=== PATIENT | female | born 1940 | race Caucasian/White ===

== ENCOUNTER → 2018-08-04 11:44 | Outpatient (CLI) | payer MEDICARE, OTHER, SELFPAY ==
--- NOTE | 2018-08-04 | DI.RAD.S_ITS ---
PROCEDURE: XR KNEE RT 1TO2V INDICATIONS: PAIN IN RIGHT KNEE TECHNIQUE: 2 views of the knee were acquired. COMPARISON: [facility], , KNEE 1 VIEW BILATERAL, 03/16/2009, 16:03. FINDINGS: Bones: No fractures or dislocations. No suspicious bony lesions. Diffuse osteopenia. Mild narrowing of the lateral joint space. Soft tissues: Trace joint effusion. No suspicious soft tissue calcifications. IMPRESSION: Mild right knee joint degeneration. This appears progressed since 03/16/09. Dictated by: Saul Tolliver M.D. on 08/04/2018 at 15:43 Approved by: Saul Tolliver M.D. on 08/04/2018 at 15:45
== END ==
PROVIDERS: PCP Physician Assistant; Visit Provider Physician Assistant
DX: M25.561 Pain in right knee (principal); M17.11 Unilateral primary osteoarthritis, right knee
CPT/HCPCS: 73560

== ENCOUNTER → 2019-05-10 11:52 | Outpatient (CLI) | payer MEDICARE, OTHER, SELFPAY ==
[2019-05-10 12:21] LABS: Add Manual Diff / Slide Review NO; Basophils Absolute Auto 200 /uL (0-100); Eosinophils Absolute Auto 200 /uL (0-450); Eosinophils Percent Auto 2.2 % (2-4); Hematocrit 39.6 % (36-46); Hemoglobin 13.5 g/dL (12.0-16.0); Lymphocytes Absolute Auto 1700 /uL (1100-4500); Lymphocytes Percent Auto 22.8 % (25-40); Mean Corpuscular HGB Conc 34.2 % (30-36); Mean Corpuscular Hemoglobin 33.1 PG (26-34); Mean Corpuscular Volume 96.6 fL (80-100); Monocytes Absolute Auto 400 /uL (0-900); Monocytes Percent Auto 5.6 % (3-14); Neutrophils Absolute Auto 4900 /uL (1500-7000); Neutrophils Percent Auto 66.4 % (50-75); Platelet Count 233 X10^3/uL (150-400); Red Blood Cell Count 4.09 X10^6/uL (4.0-5.2); Red Cell Distribution Width 13.2 % (11.6-14.8); White Blood Cell Count 7.4 X10^3/uL (4.5-11.0)
[2019-05-10 12:46] LABS: Alanine Aminotransferase 15 IU/L (9-52); Albumin 4.3 g/dL (3.5-5.0); Albumin Globulin Ratio 1.3 (1.0-2.8); Alkaline Phosphatase 65 U/L (38-126); Aspartate Aminotransferase 26 IU/L (14-36); BUN Creatinine Ratio 16.7 (6-22); Blood Urea Nitrogen 15 mg/dL (7-17); Calcium 9.5 mg/dL (8.4-10.2); Carbon Dioxide 24 mmol/L (22-32); Chloride 104 mmol/L (98-107); Cholesterol 208 mg/dL (140-199); Estimated Glomerular Filt Rate > 60.0 mL/min (>60); Globulin 3.4 g/dL (1.7-4.1); Glucose 104 mg/dL (80-110); HDL Cholesterol 89 mg/dL (40-60); HEMOLYSIS < 15 (0-50); LDL Cholesterol Calculated 94 mg/dL (<100); Potassium 4.3 mmol/L (3.4-5.1); Sodium 140 mmol/L (137-145); Total Protein 7.7 g/dL (6.3-8.2); Triglycerides 125 mg/dL (35-150)
== END ==
PROVIDERS: PCP Physician Assistant; Visit Provider Physician Assistant
DX: M81.0 Age-related osteoporosis without current pathological fracture (principal); E78.5 Hyperlipidemia, unspecified
CPT/HCPCS: 36415; 80053; 80061; 85025

== ENCOUNTER → 2019-06-03 09:09 | Outpatient (CLI) | payer MEDICARE, OTHER, SELFPAY | PROVIDERS: PCP Physician Assistant; Visit Provider Physician Assistant | DX: M81.0 Age-related osteoporosis without current pathological fracture (principal); Z78.0 Asymptomatic menopausal state; F17.200 Nicotine dependence, unspecified, uncomplicated | CPT/HCPCS: 77080 ==

== ENCOUNTER → 2019-08-23 11:25 | Outpatient (CLI) | payer MEDICARE, OTHER, SELFPAY ==
[2019-08-23 12:17] LABS: Add Manual Diff / Slide Review NO; Basophils Absolute Auto 100 /uL (0-100); Eosinophils Absolute Auto 200 /uL (0-450); Eosinophils Percent Auto 2.2 % (2-4); Hematocrit 40.7 % (36-46); Hemoglobin 13.5 g/dL (12.0-16.0); Lymphocytes Absolute Auto 1800 /uL (1100-4500); Lymphocytes Percent Auto 18.9 % (25-40); Mean Corpuscular HGB Conc 33.1 % (30-36); Mean Corpuscular Hemoglobin 32.7 PG (26-34); Mean Corpuscular Volume 98.7 fL (80-100); Monocytes Absolute Auto 400 /uL (0-900); Monocytes Percent Auto 4.5 % (3-14); Neutrophils Absolute Auto 6900 /uL (1500-7000); Neutrophils Percent Auto 73.4 % (50-75); Platelet Count 218 X10^3/uL (150-400); Red Blood Cell Count 4.12 X10^6/uL (4.0-5.2); Red Cell Distribution Width 12.6 % (11.6-14.8); White Blood Cell Count 9.4 X10^3/uL (4.5-11.0)
[2019-08-23 12:37] LABS: Alanine Aminotransferase 14 IU/L (<35); Albumin 4.2 g/dL (3.5-5.0); Albumin Globulin Ratio 1.4 (1.0-2.8); Alkaline Phosphatase 60 U/L (38-126); Aspartate Aminotransferase 26 IU/L (14-36); BUN Creatinine Ratio 14.4 (6-22); Bilirubin Total 0.8 mg/dL (0.2-1.3); Blood Urea Nitrogen 13 mg/dL (7-17); Calcium 9.1 mg/dL (8.4-10.2); Carbon Dioxide 25 mmol/L (22-32); Chloride 106 mmol/L (98-107); Cholesterol 214 mg/dL (140-199); Estimated Glomerular Filt Rate > 60.0 mL/min (>60); Glucose 93 mg/dL (80-110); HDL Cholesterol 78 mg/dL (40-60); HEMOLYSIS 17 (0-50); LDL Cholesterol Calculated 105 mg/dL (<100); Potassium 5.1 mmol/L (3.4-5.1); Sodium 139 mmol/L (137-145); Total Protein 7.2 g/dL (6.3-8.2); Triglycerides 156 mg/dL (35-150)
[2019-08-23 13:06] LABS: TSH w/ Reflex to FT4 1.88 uIU/mL (0.47-4.68)
[2019-08-23 15:18] LABS: Vitamin D 25 Hydroxy (D3) 28.2 ng/mL (30.0-100.0)
== END ==
PROVIDERS: PCP Physician Assistant; Visit Provider Physician Assistant
DX: R11.11 Vomiting without nausea (principal); R11.10 Vomiting, unspecified; E78.2 Mixed hyperlipidemia; R53.83 Other fatigue
CPT/HCPCS: 36415; 80053; 80061; 82306; 84443; 85025

== ENCOUNTER → 2019-08-24 10:26 | Outpatient (CLI) | payer MEDICARE, OTHER, SELFPAY ==
--- NOTE | 2019-08-24 10:43 | DI.CT.S_ITS ---
PROCEDURE: CT ABDOMEN PELVIS W CON INDICATIONS: Vomiting, unspecified TECHNIQUE: After the administration of oral and intravenous contrast, 5 mm thick sections acquired from the diaphragms to the symphysis. 5 mm thick coronal and sagittal reformats were performed. For radiation dose reduction, the following was used: automated exposure control, adjustment of mA and/or kV according to patient size. COMPARISON: [facility], CT, ABDOMEN/PELVIS WITH CONTRAST, 11/29/2016, 12:31. FINDINGS: Image quality: Excellent. ABDOMEN: Lung bases: Lung bases are clear. Heart size is normal. There is a large paraesophageal hiatal hernia with intrathoracic stomach. Solid organs: Mild hepatic steatosis. Liver is normal in size and enhancement. Gallbladder is normal. Biliary system is non-dilated. Pancreas enhances normally. Spleen is normal in size and enhancement. No adrenal nodules. Kidneys are normal in size and enhancement, without hydronephrosis. Peritoneum and bowel: Large amount of stool in colon. Stomach, small bowel, and colon loops are normal in caliber and wall thickness. There are numerous colonic diverticula. No free fluid or air. Nodes and vessels: No retroperitoneal or mesenteric adenopathy. Aorta and inferior vena cava are normal in caliber. Miscellaneous: No ventral hernias. PELVIS: Genitourinary: Bladder wall thickness is normal. Uterus is unremarkable. Ovaries are not well-seen. No pathological free fluid. Miscellaneous: No inguinal hernias or adenopathy. Bones: No suspicious bony lesions. No vertebral body compression fractures. IMPRESSION: 1. Large paraesophageal hiatal hernia. 2. Hepatic steatosis. 3. Diverticulosis without diverticulitis. 4. A large amount of stool in colon. Dictated by: Silver Galeas M.D. on 08/24/2019 at 14:41 Approved by: Silver Galeas M.D. on 08/24/2019 at 18:20
== END ==
PROVIDERS: PCP Physician Assistant; Visit Provider Physician Assistant
DX: R11.10 Vomiting, unspecified (principal); K44.9 Diaphragmatic hernia without obstruction or gangrene; K76.0 Fatty (change of) liver, not elsewhere classified; K57.90 Diverticulosis of intestine, part unspecified, without perforation or abscess without bleeding
CPT/HCPCS: 74177; Q9967

== ENCOUNTER 2019-09-16 15:45 | Emergency (ER) | payer MEDICARE, OTHER, SELFPAY ==
[2019-09-16 15:50] VITALS: PULSE 92; RESP 18; TEMP 36.2; O2SAT 97; BMI 25.7
[2019-09-16 16:35] LABS: Add Manual Diff / Slide Review NO; Basophils Absolute Auto 100 /uL (0-100); Basophils Percent Auto 0.7 % (0-2); Eosinophils Absolute Auto 400 /uL (0-450); Eosinophils Percent Auto 4.5 % (2-4); Hemoglobin 13.9 g/dL (12.0-16.0); Lymphocytes Absolute Auto 1900 /uL (1100-4500); Lymphocytes Percent Auto 22.7 % (25-40); Mean Corpuscular Hemoglobin 32.7 PG (26-34); Mean Corpuscular Volume 96.3 fL (80-100); Monocytes Absolute Auto 600 /uL (0-900); Monocytes Percent Auto 7.1 % (3-14); Neutrophils Absolute Auto 5600 /uL (1500-7000); Platelet Count 215 X10^3/uL (150-400); Red Blood Cell Count 4.25 X10^6/uL (4.0-5.2); Red Cell Distribution Width 13.2 % (11.6-14.8); White Blood Cell Count 8.5 X10^3/uL (4.5-11.0)
[2019-09-16 16:37] LABS: INR 1.1 (0.9-1.3); Prothrombin Time 12.1 SECONDS (10.1-12.7)
[2019-09-16 16:39] LABS: PTT Partial Thromboplastin Tim 29 SECONDS (26.4-36.2)
[2019-09-16 16:43] LABS: Alanine Aminotransferase 15 IU/L (<35); Albumin 4.1 g/dL (3.5-5.0); Albumin Globulin Ratio 1.2 (1.0-2.8); Alkaline Phosphatase 55 U/L (38-126); Aspartate Aminotransferase 23 IU/L (14-36); BUN Creatinine Ratio 17.8 (6-22); Bilirubin Total 0.3 mg/dL (0.2-1.3); Blood Urea Nitrogen 16 mg/dL (7-17); Calcium 9.4 mg/dL (8.4-10.2); Carbon Dioxide 23 mmol/L (22-32); Chloride 107 mmol/L (98-107); Estimated Glomerular Filt Rate > 60.0 mL/min (>60); Globulin 3.5 g/dL (1.7-4.1); Glucose 97 mg/dL (80-110); HEMOLYSIS 28 (0-50); Lipase 124 U/L (23-300); Potassium 4.3 mmol/L (3.4-5.1); Sodium 138 mmol/L (137-145); Total Protein 7.6 g/dL (6.3-8.2)
--- NOTE | 2019-09-16 17:17 | DI.CT.S_ITS ---
PROCEDURE: CT ABDOMEN PELVIS W CON INDICATIONS: abdominl pain with vomiting TECHNIQUE: After the administration of intravenous contrast, 5 mm thick sections acquired from the diaphragm to the symphysis. 5 mm coronal and sagittal reformats were acquired. For radiation dose reduction, the following was used: automated exposure control, adjustment of mA and/or kV according to patient size. COMPARISON: [facility], CT, CT ABDOMEN PELVIS W CON, 08/24/2019, 11:19. FINDINGS: Image quality: Excellent. ABDOMEN: Lung bases: Lung bases are clear. Heart size is normal. Coronary artery calcifications are present. Solid organs: Liver is normal in size and enhancement. Gallbladder negative. Biliary system is non dilated. Pancreas enhances normally. Spleen is normal in size and enhancement. No adrenal nodules. Kidneys demonstrate normal size and enhancement, without hydronephrosis. Peritoneum and bowel: Massive hiatal hernia is again noted, containing the entire stomach and loop of colon. Incidental colonic diverticula. Small bowel loops again noted lateral to the left colon suggestive of internal hernia although this is unchanged and no evidence of obstruction No free fluid or air. Nodes and vessels: No retroperitoneal or mesenteric adenopathy by size criteria. Aorta and inferior vena cava are normal in size. Scattered vascular calcifications seen in the aorta. Miscellaneous: No ventral hernias. PELVIS: Genitourinary: The bladder is grossly unremarkable. Miscellaneous: No inguinal hernias or adenopathy. Bones: No suspicious bony lesions. Diffuse osteopenia No vertebral body compression fractures. IMPRESSION: Redemonstration of massive hiatal hernia as before Incidental colonic diverticulosis. Normal appendix No evidence of bowel obstruction. Normal appearance of the gallbladder No acute process seen. Coronary artery disease Additional chronic and incidental findings as above. Dictated by: Saul Tolliver M.D. on 09/16/2019 at 18:14 Approved by: Saul Tolliver M.D. on 09/16/2019 at 18:21
[2019-09-16 18:04] VITALS: BP 147/64
--- NOTE | 2019-09-20 07:08 | ED.GENADULT ---
HPI - General Adult General Chief complaint: Abdominal Pain Stated complaint: vomiting Time Seen by Provider: 09/16/19 17:12 Source: patient Mode of arrival: Ambulatory History of Present Illness HPI narrative: The patient was not seen or evaluated by myself. The patient left without treatment. Based on the patient's age and her complaint in triage advanced triage orders were placed on the patient. Related Data Home Medications Medication Instructions Recorded Confirmed fluoxetine 40 mg PO QAM 09/16/19 lovastatin 20 mg PO DAILY 09/16/19 Allergies Allergy/AdvReac Type Severity Reaction Status Date / Time No Known Drug Allergies Allergy Verified 09/16/19 15:49 Exam Initial Vital Signs Initial Vital Signs: Vital Signs Temperature 97.1 F L 09/16/19 15:50 Pulse Rate 92 H 09/16/19 15:50 Respiratory Rate 18 09/16/19 15:50 Pulse Oximetry 97 09/16/19 15:50 Course Orders Ordered: Discontinued Medications Ondansetron HCl (Zofran Odt) 4 mg SL NOW ONE Stop: 09/16/19 17:19 Medical Decision Making Lab Data Result diagrams: 09/16/19 16:20 09/16/19 16:20 Labs: Lab Results 09/16/19 09/16/19 09/16/19 Range/Units 16:20 16:20 16:20 WBC 8.5 (4.5-11.0) X10^3/uL RBC 4.25 (4.0-5.2) X10^6/uL Hgb 13.9 (12.0-16.0) g/dL Hct 41.0 (36-46) % MCV 96.3 (80-100) fL MCH 32.7 (26-34) PG MCHC 34.0 (30-36) % RDW 13.2 (11.6-14.8) % Plt Count 215 (150-400) X10^3/uL Neut % (Auto) 65.0 (50-75) % Lymph % (Auto) 22.7 L (25-40) % Spencer % (Auto) 7.1 (3-14) % Eos % (Auto) 4.5 H (2-4) % Baso % (Auto) 0.7 (0-2) % Neut # (Auto) 5600 (3061-2199) /uL Lymph # (Auto) 1900 (4880-6257) /uL Spencer # (Auto) 600 (0-900) /uL Eos # (Auto) 400 (0-450) /uL Baso # (Auto) 100 (0-100) /uL PT 12.1 (10.1-12.7) SECONDS INR 1.1 (0.9-1.3) APTT 29 (26.4-36.2) SECONDS Sodium 138 (137-145) mmol/L Potassium 4.3 (3.4-5.1) mmol/L Chloride 107 (98-107) mmol/L Carbon Dioxide 23 (22-32) mmol/L BUN 16 (7-17) mg/dL Creatinine 0.90 (0.52-1.04) mg/dL Estimated GFR > 60.0 (>60) mL/min BUN/Creatinine Ratio 17.8 (6-22) Glucose 97 (80-110) mg/dL Calcium 9.4 (8.4-10.2) mg/dL Total Bilirubin 0.3 (0.2-1.3) mg/dL AST 23 (14-36) IU/L ALT 15 (<35) IU/L Alkaline Phosphatase 55 (38-126) U/L Total Protein 7.6 (6.3-8.2) g/dL Albumin 4.1 (3.5-5.0) g/dL Globulin 3.5 (1.7-4.1) g/dL Albumin/Globulin Ratio 1.2 (1.0-2.8) Lipase 124 (23-300) U/L MDM Narrative Medical decision making narrative: The patient was not seen by myself or examined. The patient left without treatment. Based on the patient's age and her complaint in triage advanced orders were placed on the patient. Discharge Plan Departure Patient Disposition: Left Without Being Seen Clinical Impression: Patient left after triage Discharge Date/Time: 09/16/19 19:08
== END 2019-09-16 19:08 | disposition left against medical advice (07) ==
PROVIDERS: Emergency Provider Emergency Medicine; PCP Physician Assistant
DX: R10.9 Unspecified abdominal pain (principal); R11.10 Vomiting, unspecified
CPT/HCPCS: 36415; 74177; 80053; 83690; 85025; 85610; 85730; 99283; Q9967

== ENCOUNTER → 2020-03-29 06:49 | Outpatient (CLI) | payer MEDICARE, OTHER, SELFPAY ==
[2020-03-29 08:36] LABS: Cholesterol 132 mg/dL (140-199); HDL Cholesterol 78 mg/dL (40-60); LDL Cholesterol Calculated 35 mg/dL (<100); Triglycerides 93 mg/dL (35-150)
== END ==
PROVIDERS: PCP Physician Assistant; Referring Provider Internal Medicine Cardiovascular Disease; Visit Provider Internal Medicine Cardiovascular Disease
DX: E78.5 Hyperlipidemia, unspecified (principal)
CPT/HCPCS: 36415; 80061

== ENCOUNTER → 2020-06-21 06:48 | Outpatient (CLI) | payer MEDICARE, OTHER, SELFPAY ==
[2020-06-21 08:04] LABS: Add Manual Diff / Slide Review NO; Basophils Absolute Auto 100 /uL (0-100); Basophils Percent Auto 0.6 % (0-2); Eosinophils Absolute Auto 200 /uL (0-450); Eosinophils Percent Auto 2.3 % (2-4); Hematocrit 39.1 % (36-46); Hemoglobin 12.7 g/dL (12.0-16.0); Lymphocytes Absolute Auto 1700 /uL (1100-4500); Lymphocytes Percent Auto 18.1 % (25-40); Mean Corpuscular HGB Conc 32.5 % (30-36); Mean Corpuscular Hemoglobin 30.4 PG (26-34); Mean Corpuscular Volume 93.6 fL (80-100); Monocytes Absolute Auto 500 /uL (0-900); Monocytes Percent Auto 5.7 % (3-14); Neutrophils Absolute Auto 7000 /uL (1500-7000); Neutrophils Percent Auto 73.3 % (50-75); Platelet Count 263 X10^3/uL (150-400); Red Blood Cell Count 4.17 X10^6/uL (4.0-5.2); Red Cell Distribution Width 14.2 % (11.6-14.8); White Blood Cell Count 9.5 X10^3/uL (4.5-11.0)
[2020-06-21 08:14] LABS: BUN Creatinine Ratio 14.1 (6-22); Blood Urea Nitrogen 12 mg/dL (7-17); Calcium 8.9 mg/dL (8.4-10.2); Carbon Dioxide 27 mmol/L (22-32); Chloride 108 mmol/L (98-107); Cholesterol 133 mg/dL (140-199); Estimated Glomerular Filt Rate > 60.0 mL/min (>60); Glucose 113 mg/dL (80-110); HDL Cholesterol 75 mg/dL (40-60); HEMOLYSIS < 15 (0-50); LDL Cholesterol Calculated 33 mg/dL (<100); Sodium 138 mmol/L (137-145); Triglycerides 124 mg/dL (35-150)
== END ==
PROVIDERS: PCP Physician Assistant; Referring Provider Internal Medicine Cardiovascular Disease; Visit Provider Internal Medicine Cardiovascular Disease
DX: I25.10 Atherosclerotic heart disease of native coronary artery without angina pectoris (principal); M81.0 Age-related osteoporosis without current pathological fracture; I10 Essential (primary) hypertension; E78.5 Hyperlipidemia, unspecified
CPT/HCPCS: 36415; 80048; 80061; 85025

== ENCOUNTER 2020-06-22 11:07 | Emergency (ER) | payer MEDICARE, OTHER, SELFPAY ==
[2020-06-22 11:10] VITALS: BP 118/67; PULSE 78; RESP 17; O2SAT 95; BMI 24.0
--- NOTE | 2020-06-22 11:23 | DI.RAD.S_ITS ---
PROCEDURE: XR CHEST 1V INDICATIONS: chest pain TECHNIQUE: One view of the chest was acquired. COMPARISON: [facility], CR, XR CHEST 1 VIEW, 01/30/2020, 16:07. FINDINGS: Surgical changes and devices: None. Lungs and pleura: Lungs are clear. No pleural effusions or pneumothorax. Mediastinum: Mediastinal contours appear normal. Heart size is normal. Bones and chest wall: No suspicious bony lesions. Overlying soft tissues appear unremarkable. IMPRESSION: No acute cardiopulmonary disease process. Dictated by: Allyson Wills MD, PhD on 06/22/2020 at 11:36 Approved by: Allyson Wills MD, PhD on 06/22/2020 at 11:42
[2020-06-22 11:35] LABS: INR 1.6 (0.9-1.3); Prothrombin Time 18.2 SECONDS (10.1-12.7)
[2020-06-22 11:37] LABS: PTT Partial Thromboplastin Tim 35 SECONDS (26.4-36.2)
--- NOTE | 2020-06-22 11:38 | ED_ITS ---
HPI - Arrhythmia/Palpitations General Chief Complaint: Arrhythmia/Palpitations Stated Complaint: confusion,low blood pressure,pulse 43 Time Seen by Provider: 06/22/20 11:35 Source: patient Mode of arrival: Ambulatory Limitations: no limitations History of Present Illness HPI narrative: This is a 80-year-old female who comes to emergency department with concern for low blood pressure and heart rate. Patient and her daughter are at bedside and states that she has intermittently had episodes where she just does not feel well and will often feel dizzy and sometimes even sweaty, they will check her blood pressure and will typically the in the 80s to 90s during these episodes and she will lay down and rest until improved. Today she has been into the 80s and 90s and when they called the nurse triage her heart r ate was in the 40s. Patient states typically it seems to run between 100 and 120 systolic and 60 diastolic. She states that she will feel sort of lightheaded but does not feel like she has to pass out, she has not had any syncopal episodes. She denies any episodes of shortness of breath or chest pain or pressure. She denies any abdominal pain. She occasionally will feel nauseated and today. She does not have any vomiting. She has not had any new changes to bowel movements, no urinary frequency, dysuria urgency or incontinence. No swelling in her extremities. No fevers, no chills, no cough or cold. She states does feel cold a lot of the time. She had a hiatal hernia repair in January and during her hospitalization was found have atrial fibrillation and started on Eliquis, Cardizem and Rostuvastatin. She also takes fluoxetine, omeprazole come uses Spiriva for COPD and trazodone for sleep. Patient states her only other surgeries she denies any other medical issues. She quit smoking in December. She has an occasional beer. No illicit drugs. Primary care is Tiff Hartmann and her tuberculosis specialist is Dr. Schilling. She has had Cardizem adjusted from 60 mg t.i.d. to 180 mg once daily. Related Data Home Medications Medication Instructions Recorded Confirmed fluoxetine 20 mg PO QAM 09/16/19 06/22/20 alprazolam 25 mg PO BID PRN 06/22/20 06/22/20 apixaban [Eliquis] 5 mg PO BID 06/22/20 06/22/20 diltiazem HCl [Cartia XT] 180 mg PO DAILY 06/22/20 06/22/20 fluticasone propion-salmeterol 1 inh INHALATION Q12H 06/22/20 06/22/20 [Wixela Inhub] metoclopramide HCl [Reglan] 10 mg PO Q6H PRN 06/22/20 06/22/20 omeprazole 20 mg PO DAILY 06/22/20 06/22/20 rosuvastatin 40 mg PO DAILY 06/22/20 06/22/20 tiotropium bromide [Spiriva with 18 mcg INHALATION DAILY 06/22/20 06/22/20 HandiHaler] trazodone 25 mg PO BEDTIME 06/22/20 06/22/20 Previous Rx's Medication Instructions Recorded cephalexin [Keflex] 500 mg PO BID #10 cap 06/22/20 Allergies Allergy/AdvReac Type Severity Reaction Status Date / Time No Known Drug Allergies Allergy Verified 09/16/19 15:49 Review of Systems Review of Systems ROS Unobtainable: All systems reviewed & are unremarkable except as noted in HPI and below Patient History Medical History (Updated 06/22/20 @ 12:55 by Caitie Chavez DO) Atrial fibrillation (Acute) COPD (chronic obstructive pulmonary disease) (Acute) Surgical History (Updated 06/22/20 @ 11:57 by Caitie Chavez DO) History of (Acute) History of repair of hiatal hernia (Acute) Social History Smoking Status: Former smoker Smoking Status: Former smoker alcohol intake frequency: 0-2 drinks per day Substance Use Type: does not use Exam Narrative Exam Narrative: GENERAL: Alert and oriented x three, thin, well-appearing elderly female in mild distress HEENT: Head normocephalic, atraumatic, EOMI, pupils reactive, face symmetric, moist mucous membranes NECK: Supple, full range of motion CARDIOVASCULAR: Regular rate and rhythm without murmurs, rubs or gallops. No JVD. Swelling bilateral lower extremities. RESPIRATORY: Breath sounds equal bilaterally, no wheezes rales or rhonchi. ABDOMEN: Soft, nontender. Normoactive bowel sounds all 4 quadrants. No guarding or rebound, rigidity, no mass : No CVA tenderness EXTREMITIES: Normal range of motion. Neurovascularly intact NEUROLOGICAL: Cranial nerves II through XII grossly intact. Moving all extremities SKIN: Warm, dry, no petechiae, no rashes or lesions. Initial Vital Signs Initial Vital Signs: Vital Signs Pulse Rate 78 06/22/20 11:10 Respiratory Rate 17 06/22/20 11:10 Blood Pressure 118/67 06/22/20 11:10 Pulse Oximetry 95 06/22/20 11:10 Scores GCS Troutman coma scale eye opening: Spontaneous Gabriella coma scale verbal response: Orientated [place]outman coma scale motor response: Obey commands Gabriella coma scale total score: 15 Course Orders Ordered: ED Orders 06/22/20 11:20 Complete Blood Count AUTO DIFF Stat Comprehensive Metabolic Panel Stat Lipase Stat Partial Thromboplastin Time Stat Prothrombin Time INR Stat Troponin & CK Cardiac Panel Stat 06/22/20 11:23 XR chest 1V Stat 06/22/20 11:30 Thyroid Stimulating Hormone Stat 06/22/20 12:00 Urine Culture Stat Urine Microscopic Stat Discontinued Medications Sodium Chloride (Normal Saline 0.9%) 1,000 mls @ 500 mls/hr IV BOLUS ONE Stop: 06/22/20 13:51 Last Infusion: 06/22/20 14:15 Dose: 0 mls/hr Documented by: Admin: 06/22/20 12:37 Dose: 500 mls/hr Documented by: MENDEL Vital Signs Vital signs: Vital Signs - 8 hr 06/22/20 11:10 06/22/20 12:06 06/22/20 13:00 Pulse Rate 78 71 Pulse Rate [Orthostatic Lying] 79 Pulse Rate [Orthostatic Sitting] 82 Pulse Rate [Orthostatic Standing] 86 Respiratory Rate 17 23 Blood Pressure 118/67 138/69 Blood Pressure [Orthostatic Lying] 133/68 Blood Pressure [Orthostatic Sitting] 131/73 Blood Pressure [Orthostatic Standing] 131/72 Pulse Oximetry 95 97 06/22/20 13:30 06/22/20 13:31 Pulse Rate 73 73 Pulse Rate [Orthostatic Lying] Pulse Rate [Orthostatic Sitting] Pulse Rate [Orthostatic Standing] Respiratory Rate 24 24 Blood Pressure 128/68 Blood Pressure [Orthostatic Lying] Blood Pressure [Orthostatic Sitting] Blood Pressure [Orthostatic Standing] Pulse Oximetry 96 96 MDM - Arrhythmia/Palpitations Lab Data Attestation: I reviewed the patient's lab results. Result diagrams: 06/22/20 11:20 06/22/20 11:20 Labs: Lab Results 06/22/20 06/22/20 06/22/20 Range/Units 11:20 11:20 11:20 WBC 11.2 H (4.5-11.0) X10^3/uL RBC 4.07 (4.0-5.2) X10^6/uL Hgb 12.2 (12.0-16.0) g/dL Hct 37.6 (36-46) % MCV 92.4 (80-100) fL MCH 30.0 (26-34) PG MCHC 32.5 (30-36) % RDW 14.1 (11.6-14.8) % Plt Count 260 (150-400) X10^3/uL Neut % (Auto) 76.3 H (50-75) % Lymph % (Auto) 13.1 L (25-40) % Newton % (Auto) 7.2 (3-14) % Eos % (Auto) 2.5 (2-4) % Baso % (Auto) 0.9 (0-2) % Neut # (Auto) 8600 H (9547-1808) /uL Lymph # (Auto) 1500 (0228-5147) /uL Newton # (Auto) 800 (0-900) /uL Eos # (Auto) 300 (0-450) /uL Baso # (Auto) 100 (0-100) /uL PT 18.2 H (10.1-12.7) SECONDS INR 1.6 H (0.9-1.3) APTT 35 D (26.4-36.2) SECONDS Sodium 137 (137-145) mmol/L Potassium 3.7 (3.4-5.1) mmol/L Chloride 108 H (98-107) mmol/L Carbon Dioxide 22 (22-32) mmol/L BUN 9 (7-17) mg/dL Creatinine 0.76 (0.52-1.04) mg/dL Estimated GFR > 60.0 (>60) mL/min BUN/Creatinine Ratio 11.8 (6-22) Glucose 107 (80-110) mg/dL Calcium 8.5 (8.4-10.2) mg/dL Total Bilirubin 0.3 (0.2-1.3) mg/dL AST 25 (14-36) IU/L ALT 14 (<35) IU/L Alkaline Phosphatase 63 (38-126) U/L Total Creatine Kinase 83 (30-135) U/L CK-MB (CK-2) TNP CK-MB (CK-2) Rel Index TNP Troponin I < 0.012 (0.01-0.034) ng/mL Total Protein 7.1 (6.3-8.2) g/dL Albumin 3.9 (3.5-5.0) g/dL Globulin 3.2 (1.7-4.1) g/dL Albumin/Globulin Ratio 1.2 (1.0-2.8) Lipase 68 (23-300) U/L TSH (0.47-4.68) uIU/mL Urine RBC (0-5/HPF) Urine WBC (0-5/HPF) Ur Squamous Epith Cells (0-5/HPF) Amorphous Sediment Urine Bacteria (None) Ur Culture Indicated? 06/22/20 06/22/20 Range/Units 11:30 12:00 WBC (4.5-11.0) X10^3/uL RBC (4.0-5.2) X10^6/uL Hgb (12.0-16.0) g/dL Hct (36-46) % MCV (80-100) fL MCH (26-34) PG MCHC (30-36) % RDW (11.6-14.8) % Plt Count (150-400) X10^3/uL Neut % (Auto) (50-75) % Lymph % (Auto) (25-40) % Newton % (Auto) (3-14) % Eos % (Auto) (2-4) % Baso % (Auto) (0-2) % Neut # (Auto) (4949-1220) /uL Lymph # (Auto) (7911-3476) /uL Newton # (Auto) (0-900) /uL Eos # (Auto) (0-450) /uL Baso # (Auto) (0-100) /uL PT (10.1-12.7) SECONDS INR (0.9-1.3) APTT (26.4-36.2) SECONDS Sodium (137-145) mmol/L Potassium (3.4-5.1) mmol/L Chloride (98-107) mmol/L Carbon Dioxide (22-32) mmol/L BUN (7-17) mg/dL Creatinine (0.52-1.04) mg/dL Estimated GFR (>60) mL/min BUN/Creatinine Ratio (6-22) Glucose (80-110) mg/dL Calcium (8.4-10.2) mg/dL Total Bilirubin (0.2-1.3) mg/dL AST (14-36) IU/L ALT (<35) IU/L Alkaline Phosphatase (38-126) U/L Total Creatine Kinase (30-135) U/L CK-MB (CK-2) CK-MB (CK-2) Rel Index Troponin I (0.01-0.034) ng/mL Total Protein (6.3-8.2) g/dL Albumin (3.5-5.0) g/dL Globulin (1.7-4.1) g/dL Albumin/Globulin Ratio (1.0-2.8) Lipase (23-300) U/L TSH 3.69 (0.47-4.68) uIU/mL Urine RBC 0-1/hpf (0-5/HPF) Urine WBC >100/hpf H (0-5/HPF) Ur Squamous Epith Cells 0-1 /hpf (0-5/HPF) Amorphous Sediment 1+ Urine Bacteria Many (>30) H (None) Ur Culture Indicated? Specimen cultured Urine Dip Bedside Urine Glucose Negative Bedside Urine Bilirubin - Negative Bedside Urine Ketone - Negative Urine Specific [place] 1.010 Bedside Urine Occult Blood +/- Bedside Urine pH 6.0 Bedside Urine Protein - Negative Bedside Urine Urobilinogen - Negative Bedside Urine Nitrite + Positive Bedside Urine Leukocytes ++ 125 Esterase Imaging Data Chest x-ray: Radiologist's Impresson: [address] [address] XRay Report Signed Patient: Teresita Fernandez EMR#: [id number] : 1940Acct:[id number] Age/Sex: 80 / FDate of Service: 06/22/20 Loc: ED Accession Number: [id number] Procedure: XR chest 1V Ordering Provider: Caitie Chavez D.O. PROCEDURE: XR CHEST 1V INDICATIONS: chest pain TECHNIQUE: One view of the chest was acquired. COMPARISON: [facility], CR, XR CHEST 1 VIEW, 01/30/2020, 16:07. FINDINGS: Surgical changes and devices: None. Lungs and pleura: Lungs are clear. No pleural effusions or pneumothorax. Mediastinum: Mediastinal contours appear normal. Heart size is normal. Bones and chest wall: No suspicious bony lesions. Overlying soft tissues appear unremarkable. IMPRESSION: No acute cardiopulmonary disease process. Dictated by: Allyson Wills MD, PhD on 06/22/2020 at 11:36 Approved by: Allyson Wills MD, PhD on 06/22/2020 at 11:42 ECG Data Attestation: I personally reviewed and interpreted this ECG as follows: Prior ECG tracings: not available for review Interpretation: Sinus rhythm possible sinus arrhythmia. Rate of 75, VT 170 QRS 86 with a QTC of 435. No ST elevation appreciated. Patient has some appears to be motion artifact in V3 5 and 6. She does appear to have sinus rhythm in her other leads. MDM Narrative Medical decision making narrative: During evaluation with patient they have been checking her blood pressures intermittently for several weeks to months and noted she often has low blood pressures and these seem to be correlated with starting her anti arrhythmic diltiazem, I suspect she may be having low heart rate and blood pressure secondary to medication. Will evaluate for other potential causes including infection, pulmonary and cardiac causes. Patient's labs show mildly elevated white count at 11.2, INR is 1.6, electrolytes, renal function and troponin are all appropriate. TSH is appropriate. CXR shows no acute changes, and EKG appears to be in sinus rhythm at this time. Patient BP is appropriate in department and negative orthostatics. Patient ambulating without issue. Discussed that she may still need a change to her diltiazem and I would continue to monitor. Patient has telemedicine appointment friday with her tuberculosis specialist. We did discuss not to take her diltiazem if BP is <100 systolic. Daughter and patient both express understanding. Discharge Plan Departure Patient Disposition: Home Clinical Impression: UTI (urinary tract infection) Discharge Date/Time: 06/22/20 14:18 Instructions: DI for Urinary Tract Infection (UTI) Activity Restrictions/Additional Instructions: Follow-up with your physician in the next week for recheck. Your urine does show changes consistent with bladder infection, take antibiotics until completely gone. I would continue to monitor your blood pressure and heart rate and if it continues to be low you may need to have an adjustment to your diltiazem dose. Continue your other medications as prescribed. Return to the emergency department for fevers greater 100.4 F, lightheadedness, passing out, new chest pain or shortness of breath, persistent vomiting, swelling in her extremities, altered mental status or other new or concerning symptoms. Prescriptions: New cephalexin [Keflex] 500 mg capsule 500 mg PO BID Qty: 10 RF: 0 No Action fluoxetine 40 mg capsule 20 mg PO QAM RF: 0 fluticasone propion-salmeterol [Wixela Inhub] 250-50 mcg/dose Blister With Device 1 inh INHALATION Q12H RF: 0 trazodone 50 mg Tablet 25 mg PO BEDTIME RF: 0 diltiazem HCl [Cartia XT] 180 mg capsule,extended release 24hr 180 mg PO DAILY RF: 0 alprazolam 0.25 mg tablet 25 mg PO BID PRN (Reason: Anxiety) RF: 0 metoclopramide HCl [Reglan] 10 mg Tablet 10 mg PO Q6H PRN (Reason: nausea) RF: 0 rosuvastatin 40 mg tablet 40 mg PO DAILY RF: 0 Spiriva with HandiHaler 18 mcg capsule, w/inhalation device 18 mcg INHALATION DAILY RF: 0 omeprazole 20 mg Tablet,Delayed Release (Dr/Ec) 20 mg PO DAILY RF: 0 Eliquis 5 mg Tablet 5 mg PO BID RF: 0 Referrals: Tiff Hartmann PA-C [Primary Care Provider] -
[2020-06-22 11:39] LABS: Alanine Aminotransferase 14 IU/L (<35); Albumin 3.9 g/dL (3.5-5.0); Albumin Globulin Ratio 1.2 (1.0-2.8); Alkaline Phosphatase 63 U/L (38-126); Aspartate Aminotransferase 25 IU/L (14-36); BUN Creatinine Ratio 11.8 (6-22); Bilirubin Total 0.3 mg/dL (0.2-1.3); Blood Urea Nitrogen 9 mg/dL (7-17); Calcium 8.5 mg/dL (8.4-10.2); Carbon Dioxide 22 mmol/L (22-32); Chloride 108 mmol/L (98-107); Creatine Kinase 83 U/L (30-135); Estimated Glomerular Filt Rate > 60.0 mL/min (>60); Globulin 3.2 g/dL (1.7-4.1); Glucose 107 mg/dL (80-110); Lipase 68 U/L (23-300); Potassium 3.7 mmol/L (3.4-5.1); Sodium 137 mmol/L (137-145); Total Protein 7.1 g/dL (6.3-8.2)
[2020-06-22 11:41] LABS: Add Manual Diff / Slide Review NO; Basophils Absolute Auto 100 /uL (0-100); Basophils Percent Auto 0.9 % (0-2); Eosinophils Absolute Auto 300 /uL (0-450); Eosinophils Percent Auto 2.5 % (2-4); Hematocrit 37.6 % (36-46); Hemoglobin 12.2 g/dL (12.0-16.0); Lymphocytes Absolute Auto 1500 /uL (1100-4500); Lymphocytes Percent Auto 13.1 % (25-40); Mean Corpuscular HGB Conc 32.5 % (30-36); Mean Corpuscular Volume 92.4 fL (80-100); Monocytes Absolute Auto 800 /uL (0-900); Monocytes Percent Auto 7.2 % (3-14); Neutrophils Absolute Auto 8600 /uL (1500-7000); Neutrophils Percent Auto 76.3 % (50-75); Platelet Count 260 X10^3/uL (150-400); Red Blood Cell Count 4.07 X10^6/uL (4.0-5.2); Red Cell Distribution Width 14.1 % (11.6-14.8); White Blood Cell Count 11.2 X10^3/uL (4.5-11.0)
[2020-06-22 11:52] LABS: HEMOLYSIS 15 (0-50); Troponin I < 0.012 ng/mL (0.01-0.034)
[2020-06-22 12:06] VITALS: BP 131/72; BP 131/73; BP 133/68; PULSE 79; PULSE 82; PULSE 86
[2020-06-22] MEDS: SODIUM CHLORIDE 0.9% 1,000 ML 500 ML IV (12:37)
[2020-06-22 13:00] VITALS: BP 138/69; PULSE 71; RESP 23; O2SAT 97
[2020-06-22 13:02] LABS: Thyroid Stimulating Hormone 3.69 uIU/mL (0.47-4.68)
[2020-06-22 13:11] LABS: Amorphous Sediment Urine 1+; Bacteria Urine Many (>30); Culture Indicated Urine Specimen Cultured; RBC Urine 0-1/HPF (0-5/HPF); Squamous Epithelial Cell Urine 0-1 /HPF (0-5/HPF); WBC Urine >100/HPF (0-5/HPF)
[2020-06-22 13:30] VITALS: PULSE 73; RESP 24; O2SAT 96
[2020-06-22 13:31] VITALS: BP 128/68; PULSE 73; RESP 24; O2SAT 96
== END 2020-06-22 14:18 | disposition home or self-care (01) ==
PROVIDERS: Emergency Provider Emergency Medicine; PCP Physician Assistant
DX: N39.0 Urinary tract infection, site not specified (principal); I95.9 Hypotension, unspecified; R42 Dizziness and giddiness; I48.91 Unspecified atrial fibrillation; Z79.01 Long term (current) use of anticoagulants; R07.9 Chest pain, unspecified
CPT/HCPCS: 36415; 71045; 80053; 81003; 81015; 82550; 83690; 84443; 84484; 85025; 85610; 85730; 87077; 87086; 87186; 93005; 93010; 96360; 96361; 99284

== ENCOUNTER → 2020-07-12 09:18 | Outpatient (CLI) | payer MEDICARE, OTHER, SELFPAY ==
[2020-07-12 10:50] LABS: Alanine Aminotransferase 13 IU/L (<35); Albumin 3.9 g/dL (3.5-5.0); Albumin Globulin Ratio 1.2 (1.0-2.8); Alkaline Phosphatase 69 U/L (38-126); Aspartate Aminotransferase 22 IU/L (14-36); BUN Creatinine Ratio 12.3 (6-22); Bilirubin Total 0.5 mg/dL (0.2-1.3); Blood Urea Nitrogen 10 mg/dL (7-17); Calcium 8.9 mg/dL (8.4-10.2); Carbon Dioxide 27 mmol/L (22-32); Chloride 108 mmol/L (98-107); Estimated Glomerular Filt Rate > 60.0 mL/min (>60); Globulin 3.3 g/dL (1.7-4.1); Glucose 116 mg/dL (80-110); HEMOLYSIS < 15 (0-50); Potassium 4.4 mmol/L (3.4-5.1); Sodium 139 mmol/L (137-145); Total Protein 7.2 g/dL (6.3-8.2)
== END ==
PROVIDERS: PCP Physician Assistant; Referring Provider Physician Assistant; Visit Provider Physician Assistant
DX: M81.0 Age-related osteoporosis without current pathological fracture (principal)
CPT/HCPCS: 36415; 80053

== ENCOUNTER → 2020-08-03 14:18 | Outpatient (CLI) | payer MEDICARE, OTHER, SELFPAY ==
[2020-08-03 14:26] LABS: RBC Urine None Seen (0-5/HPF)
[2020-08-03 14:47] LABS: Add Manual Diff / Slide Review NO; Basophils Absolute Auto 100 /uL (0-100); Basophils Percent Auto 1.2 % (0-2); Eosinophils Absolute Auto 200 /uL (0-450); Eosinophils Percent Auto 1.9 % (2-4); Hematocrit 34.6 % (36-46); Hemoglobin 11.7 g/dL (12.0-16.0); Lymphocytes Absolute Auto 2000 /uL (1100-4500); Mean Corpuscular HGB Conc 33.7 % (30-36); Mean Corpuscular Hemoglobin 31.1 PG (26-34); Mean Corpuscular Volume 92.2 fL (80-100); Monocytes Absolute Auto 700 /uL (0-900); Neutrophils Absolute Auto 7300 /uL (1500-7000); Neutrophils Percent Auto 70.9 % (50-75); Platelet Count 266 X10^3/uL (150-400); Red Blood Cell Count 3.75 X10^6/uL (4.0-5.2); Red Cell Distribution Width 14.7 % (11.6-14.8); White Blood Cell Count 10.4 X10^3/uL (4.5-11.0)
[2020-08-03 15:04] LABS: Alanine Aminotransferase 11 IU/L (<35); Albumin 3.9 g/dL (3.5-5.0); Albumin Globulin Ratio 1.1 (1.0-2.8); Alkaline Phosphatase 83 U/L (38-126); Aspartate Aminotransferase 20 IU/L (14-36); BUN Creatinine Ratio 7.3 (6-22); Bilirubin Total 0.3 mg/dL (0.2-1.3); Blood Urea Nitrogen 9 mg/dL (7-17); Calcium 8.3 mg/dL (8.4-10.2); Carbon Dioxide 22 mmol/L (22-32); Chloride 112 mmol/L (98-107); Estimated Glomerular Filt Rate 41.6 mL/min (>60); Globulin 3.6 g/dL (1.7-4.1); Glucose 117 mg/dL (80-110); HEMOLYSIS < 15 (0-50); Potassium 3.7 mmol/L (3.4-5.1); Sodium 139 mmol/L (137-145); Total Protein 7.5 g/dL (6.3-8.2)
[2020-08-03 15:05] LABS: Appearance Urine UA CLOUDY; Bilirubin Urine UA NEGATIVE (NEGATIVE); Color Urine UA YELLOW; Glucose Urine UA NEGATIVE (Negative); Ketones Urine UA NEGATIVE (NEGATIVE); Leukocyte Esterase Urine UA 1+ (NEGATIVE); Nitrite Urine UA POSITIVE (Negative); Occult Blood Urine UA 1+ (Negative); Protein Urine UA 2+ (Negative)
[2020-08-03 15:36] LABS: Bacteria Urine Many (>30); Squamous Epithelial Cell Urine 0-1 /HPF (0-5/HPF); Transitional Epi Cells Urine 1-5/HPF (0-5/HPF); WBC Urine >100/HPF (0-5/HPF)
== END ==
PROVIDERS: PCP Physician Assistant; Referring Provider Physician Assistant; Visit Provider Physician Assistant
DX: R82.90 Unspecified abnormal findings in urine (principal)
CPT/HCPCS: 36415; 80053; 81001; 85025; 87077; 87086; 87186

== ENCOUNTER → 2020-08-23 15:15 | Outpatient (CLI) | payer MEDICARE, OTHER, SELFPAY ==
--- NOTE | 2020-08-23 | DI.US.S_ITS ---
PROCEDURE: US RENAL COMPLETE INDICATIONS: LEFT FLANK PAIN TECHNIQUE: Real-time scanning was performed of the kidneys and bladder, with image documentation. COMPARISON: None. FINDINGS: Kidneys: Kidneys are normal in size. Right kidney measures 9.4 cm long; left kidney measures 10.0 cm long. Right renal cortical thickness is 1.1 cm; left renal cortical thickness is 1.3 cm. Renal cortical echotexture is normal. Trace right pelviectasis and mild proximal right ureterectasis No left hydronephrosis or nephrolithiasis. No suspicious solid mass lesions. Bladder: Pre-void bladder volume is 311 mL. Post-void residual is 41 mL. Pre-void images demonstrate no intraluminal masses or stones. On pre-void images, both of the ureteral jets are noted with color Doppler interrogation. (Of note, ureteral jets may not be detectable in up to 25% of cases due to insufficient differences in specific gravity between ureteral and bladder urine). Miscellaneous: No free pelvic fluid. IMPRESSION: Mild right pelviectasis and proximal right ureterectasis. Postvoid residual measures 41 cc No evidence of left-sided hydronephrosis. No nephrolithiasis identified Dictated by: Saul Tolliver M.D. on 08/23/2020 at 17:08 Approved by: Saul Tolliver M.D. on 08/23/2020 at 17:10
== END ==
PROVIDERS: PCP Physician Assistant; Referring Provider Physician Assistant; Visit Provider Physician Assistant
DX: R10.9 Unspecified abdominal pain (principal)
CPT/HCPCS: 76770

== ENCOUNTER → 2020-12-21 06:51 | Outpatient (CLI) | payer MEDICARE, OTHER, SELFPAY ==
[2020-12-21 08:02] LABS: Add Manual Diff / Slide Review NO; Basophils Absolute Auto 100 /uL (0-100); Basophils Percent Auto 1.9 % (0-2); Eosinophils Absolute Auto 200 /uL (0-450); Hematocrit 33.6 % (36-46); Hemoglobin 11.3 g/dL (12.0-16.0); Lymphocytes Absolute Auto 1400 /uL (1100-4500); Lymphocytes Percent Auto 24.6 % (25-40); Mean Corpuscular HGB Conc 33.6 % (30-36); Mean Corpuscular Hemoglobin 31.4 PG (26-34); Mean Corpuscular Volume 93.5 fL (80-100); Monocytes Absolute Auto 500 /uL (0-900); Neutrophils Absolute Auto 3500 /uL (1500-7000); Neutrophils Percent Auto 62.5 % (50-75); Platelet Count 220 X10^3/uL (150-400); Red Blood Cell Count 3.59 X10^6/uL (4.0-5.2); Red Cell Distribution Width 14.6 % (11.6-14.8); White Blood Cell Count 5.6 X10^3/uL (4.5-11.0)
[2020-12-21 08:08] LABS: BUN Creatinine Ratio 9.7 (6-22); Blood Urea Nitrogen 10 mg/dL (7-17); Calcium 9.1 mg/dL (8.4-10.2); Carbon Dioxide 25 mmol/L (22-32); Chloride 109 mmol/L (98-107); Cholesterol 145 mg/dL (140-199); Estimated Glomerular Filt Rate 51.6 mL/min (>60); Glucose 113 mg/dL (80-110); HDL Cholesterol 81 mg/dL (40-60); HEMOLYSIS < 15 (0-50); LDL Cholesterol Calculated 53 mg/dL (<100); Potassium 4.1 mmol/L (3.4-5.1); Sodium 140 mmol/L (137-145); Triglycerides 56 mg/dL (35-150)
== END ==
PROVIDERS: PCP Physician Assistant; Referring Provider Internal Medicine Cardiovascular Disease; Visit Provider Internal Medicine Cardiovascular Disease
DX: E78.5 Hyperlipidemia, unspecified (principal); I25.10 Atherosclerotic heart disease of native coronary artery without angina pectoris
CPT/HCPCS: 36415; 80048; 80061; 85025

== ENCOUNTER → 2021-01-01 10:19 | Outpatient (CLI) | payer MEDICARE, OTHER, SELFPAY ==
[2021-01-01 11:33] LABS: Add Manual Diff / Slide Review NO; Basophils Absolute Auto 100 /uL (0-100); Basophils Percent Auto 1.5 % (0-2); Eosinophils Absolute Auto 100 /uL (0-450); Eosinophils Percent Auto 1.9 % (2-4); Hematocrit 34.1 % (36-46); Hemoglobin 11.3 g/dL (12.0-16.0); Lymphocytes Absolute Auto 1500 /uL (1100-4500); Mean Corpuscular HGB Conc 33.1 % (30-36); Mean Corpuscular Volume 93.6 fL (80-100); Monocytes Absolute Auto 600 /uL (0-900); Monocytes Percent Auto 8.1 % (3-14); Neutrophils Absolute Auto 5200 /uL (1500-7000); Neutrophils Percent Auto 68.5 % (50-75); Platelet Count 229 X10^3/uL (150-400); Red Blood Cell Count 3.64 X10^6/uL (4.0-5.2); Red Cell Distribution Width 14.5 % (11.6-14.8); White Blood Cell Count 7.6 X10^3/uL (4.5-11.0)
[2021-01-01 12:24] LABS: Ferritin 15 ng/mL (11-264)
[2021-01-01 12:48] LABS: Iron 45 ug/dL (37-170)
[2021-01-01 12:54] LABS: Vitamin B12 320 pg/mL (239-931)
[2021-01-04 17:37] LABS: HEMOLYSIS < 15 (0-50); Percent Iron Saturation 16 % (15-50); Total Iron Binding Capacity 284 ug/dL (265-497); Transferrin 237 mg/dL (206-381)
== END ==
PROVIDERS: PCP Physician Assistant; Referring Provider Physician Assistant; Visit Provider Physician Assistant
DX: D64.9 Anemia, unspecified
CPT/HCPCS: 36415; 82607; 82728; 82746; 83540; 83550; 85025

== ENCOUNTER 2021-02-14 12:40 | Emergency (ER) | payer MEDICARE, OTHER, SELFPAY ==
[2021-02-14] VITALS (9 sets, daily range): BP systolic 118–144; BP diastolic 57–80; PULSE 57–74; RESP 16–27; TEMP 36.4; O2SAT 96–100
--- NOTE | 2021-02-14 12:44 | DI.RAD.S_ITS ---
PROCEDURE: XR CHEST 1V INDICATIONS: chest pain TECHNIQUE: One view of the chest was acquired. COMPARISON: [facility], CR, XR CHEST 1V, 06/22/2020, 11:28. FINDINGS: Surgical changes and devices: None. Lungs and pleura: Minimal appearance of increased pulmonary vascularity is present. Mediastinum: Mediastinal contours appear normal. Heart size is enlarged. Bones and chest wall: No suspicious bony lesions. Overlying soft tissues appear unremarkable. IMPRESSION: Minimal increased vascularity suggestive of edema. Dictated by: Marimar Greene M.D. on 02/14/2021 at 13:27 Approved by: Marimar Greene M.D. on 02/14/2021 at 13:27
--- NOTE | 2021-02-14 13:02 | ED_ITS ---
HPI - Dizziness General Chief Complaint: Syncope Stated Complaint: Hot flashes and dizziness Time Seen by Provider: 02/14/21 12:56 Source: patient and EMS Mode of arrival: EMS Limitations: no limitations History of Present Illness HPI Narrative: Female who felt dizzy lightheaded and flushed today. She has never felt like this before. She called EMS they found her glucose to be 54. She was given oral glucose and now feels better. She at no time had any chest pain shortness of breaths did numbness tingling or weakness. She now is feeling much better. She said she ate a bowl of cereal for breakfast which she normally does but has not yet had lunch. She did not pass out or loose consciousness. MD complaint: lightheadedness Related Data Home Medications Medication Instructions Recorded Confirmed fluoxetine 20 mg PO QAM 09/16/19 02/14/21 alprazolam 25 mg PO BID PRN 06/22/20 02/14/21 apixaban [Eliquis] 5 mg PO BID 06/22/20 02/14/21 diltiazem HCl [Cartia XT] 180 mg PO QAM 06/22/20 02/14/21 omeprazole 20 mg PO BID 06/22/20 02/14/21 rosuvastatin 40 mg PO BEDTIME 06/22/20 02/14/21 tiotropium bromide [Spiriva with 18 mcg INHALATION QAM 06/22/20 02/14/21 HandiHaler] trazodone 25 mg PO BEDTIME 06/22/20 02/14/21 fluticasone propion-salmeterol 1 inh INHALATION BID 02/14/21 02/14/21 [Wixela Inhub] metoclopramide HCl 5 mg PO TID 02/14/21 02/14/21 Allergies Allergy/AdvReac Type Severity Reaction Status Date / Time No Known Drug Allergies Allergy Verified 02/14/21 12:50 Review of Systems Review of Systems Narrative: GENERAL: Denies chills, fatigue, malaise, fever, sweats, travel HEENT: Denies sinus pain, ear pain, sore throat, difficulty swallowing, neck pain RESPIRATORY: Denies dyspnea, cough, wheezing, hemoptysis, sputum. CARDIOVASCULAR: Denies chest pain, palpitations, orthopnea, edema GASTROINTESTINAL: Denies nausea, vomiting, abdominal pain, diarrhea, constipation, melena. : Denies dysuria, frequency, incontinence, hematuria, urinary retention, flank pain. MUSCULOSKELETAL: Denies weakness, joint pain, or bony pain SKIN: No rash, no erythema, no pruritus NEUROLOGIC: The lightheadedness, denies weakness numbness tingling PSYCHIATRIC: No concerning psychosocial issues. 12 point review of systems is negative except for those stated above and HPI Patient History Medical History Atrial fibrillation COPD (chronic obstructive pulmonary disease) Surgical History History of History of repair of hiatal hernia Social History Smoking Status: Former smoker Smoking Status: Former smoker alcohol intake frequency: 0-2 drinks per day Substance Use Type: does not use Exam Initial Vital Signs Initial Vital Signs: Vital Signs Temperature 97.6 F 02/14/21 12:44 Pulse Rate 60 02/14/21 12:44 Respiratory Rate 16 02/14/21 12:44 Blood Pressure 144/66 H 02/14/21 12:44 Pulse Oximetry 100 02/14/21 12:44 GENERAL: Alert 80-year-old female appears well and in no acute distress. HEENT: Head atraumatic,EOMI, pupils reactive, face symmetric, moist mucous membranes CARDIOVASCULAR: Regular rate and rhythm without murmurs, rubs or gallops. RESPIRATORY: Breath sounds equal bilaterally, no wheezes rales or rhonchi. ABDOMEN: Soft, nontender. Normoactive bowel sounds all 4 quadrants. No guarding or rebound. EXTREMITIES: Normal range of motion, no clubbing or edema. Neurovascularly int act NEUROLOGICAL: Alert and oriented x4.Normal gait and speech. Cranial nerves II through XII grossly intact. Good [id number], good [id number], strength equal bilaterally, no dysarthria or aphasia, sensation in tact to soft touch bilaterally, no visual changes, no facial droop SKIN: Warm, dry, no laceration, no petechiae, no rashes or lesions. Course Orders Ordered: ED Orders 02/14/21 12:44 XR chest 1V Stat EKG-12 Lead Stat 02/14/21 13:05 Complete Blood Count AUTO DIFF Stat Comprehensive Metabolic Panel Stat Lipase Stat Magnesium Stat Troponin & CK Cardiac Panel Stat Vital Signs Vital signs: Vital Signs - 8 hr 02/14/21 12:44 02/14/21 12:47 02/14/21 13:00 Temperature 97.6 F Pulse Rate 60 60 61 Respiratory Rate 16 24 24 Blood Pressure 144/66 H 122/57 L Pulse Oximetry 100 96 97 02/14/21 13:30 02/14/21 13:31 02/14/21 14:00 Temperature Pulse Rate 58 L 60 57 L Respiratory Rate 23 18 20 Blood Pressure 128/60 118/58 L Pulse Oximetry 97 02/14/21 14:30 02/14/21 14:31 02/14/21 15:00 Temperature Pulse Rate 69 74 65 Respiratory Rate 22 27 H 17 Blood Pressure 140/80 130/62 Pulse Oximetry MDM - Dizziness Lab Data Attestation: I reviewed the patient's lab results. Result diagrams: 02/14/21 13:05 02/14/21 13:05 Labs: Lab Results 02/14/21 02/14/21 Range/Units 13:05 13:05 WBC 9.6 (4.5-11.0) X10^3/uL RBC 3.88 L (4.0-5.2) X10^6/uL Hgb 12.3 (12.0-16.0) g/dL Hct 36.9 (36-46) % MCV 95.1 (80-100) fL MCH 31.7 (26-34) PG MCHC 33.3 (30-36) % RDW 15.2 H (11.6-14.8) % Plt Count 184 (150-400) X10^3/uL Neut % (Auto) 72.2 (50-75) % Lymph % (Auto) 16.8 L (25-40) % Hancock % (Auto) 8.1 (3-14) % Eos % (Auto) 1.8 L (2-4) % Baso % (Auto) 1.1 (0-2) % Neut # (Auto) 6900 (8390-4185) /uL Lymph # (Auto) 1600 (7230-0093) /uL Hancock # (Auto) 800 (0-900) /uL Eos # (Auto) 200 (0-450) /uL Baso # (Auto) 100 (0-100) /uL Sodium 137 (137-145) mmol/L Potassium 3.2 L (3.4-5.1) mmol/L Chloride 106 (98-107) mmol/L Carbon Dioxide 23 (22-32) mmol/L BUN 14 (7-17) mg/dL Creatinine 0.77 (0.52-1.04) mg/dL Estimated GFR > 60.0 (>60) mL/min BUN/Creatinine Ratio 18.2 (6-22) Glucose 122 H (80-110) mg/dL Calcium 9.4 (8.4-10.2) mg/dL Magnesium 2.0 (1.6-2.3) mg/dL Total Bilirubin 0.3 (0.2-1.3) mg/dL AST 24 (14-36) IU/L ALT 17 (<35) IU/L Alkaline Phosphatase 50 (38-126) U/L Total Creatine Kinase 63 (30-135) U/L CK-MB (CK-2) TNP CK-MB (CK-2) Rel Index TNP Troponin I < 0.012 (0.01-0.034) ng/mL Total Protein 7.1 (6.3-8.2) g/dL Albumin 3.9 (3.5-5.0) g/dL Globulin 3.2 (1.7-4.1) g/dL Albumin/Globulin Ratio 1.2 (1.0-2.8) Lipase 358 H (23-300) U/L Imaging Data Chest x-ray: Radiologist's Impression: PROCEDURE: XR CHEST 1V INDICATIONS: chest pain TECHNIQUE: One view of the chest was acquired. COMPARISON: [facility], , XR CHEST 1V, 06/22/2020, 11:28. FINDINGS: Surgical changes and devices: None. Lungs and pleura: Minimal appearance of increased pulmonary vascularity is present. Mediastinum: Mediastinal contours appear normal. Heart size is enlarged. Bones and chest wall: No suspicious bony lesions. Overlying soft tissues appear unremarkable. IMPRESSION: Minimal increased vascularity suggestive of edema. Dictated by: Marimar Greene M.D. on 02/14/2021 at 13:27 Approved by: Marimar Greene M.D. on 02/14/2021 at 13:27 ECG Data Attestation: I personally reviewed and interpreted this ECG as follows: Prior ECG tracings: available for review Interpretation: Normal sinus rhythm rate 59 p.r. interval 188 QRS [address] changes or T-wave inversions similar to previous EKG MDM Narrative Medical decision making narrative: Possible patient was hypoglycemic she has never been hypoglycemic before. However her symptoms improved with glucose she has eaten a meal here no focal deficits or reason to get head CT. She overall is feeling better. Discharge Plan Departure Patient Disposition: Home Clinical Impression: Hypoglycemia Instructions: DI for Hypoglycemia Activity Restrictions/Additional Instructions: *You have been diagnosed with hypoglycemia *What to do: At this time I think her symptoms today were from low sugar and fat. Please be sure to eat frequent small meals *Continue to take medications as directed *Follow up with your primary care provider in 2-3 days *Return to ER if you should have increasing dizziness, lightheadedness, chest pain palpitations or any new, worsening or concerning symptoms Prescriptions: No Action fluoxetine 40 mg capsule 20 mg PO QAM RF: 0 trazodone 50 mg Tablet 25 mg PO BEDTIME RF: 0 diltiazem HCl [Cartia XT] 180 mg capsule,extended release 24hr 180 mg PO QAM RF: 0 alprazolam 0.25 mg tablet 25 mg PO BID PRN (Reason: Anxiety) RF: 0 rosuvastatin 40 mg tablet 40 mg PO BEDTIME RF: 0 Spiriva with HandiHaler 18 mcg capsule, w/inhalation device 18 mcg INHALATION QAM RF: 0 omeprazole 20 mg Tablet,Delayed Release (Dr/Ec) 20 mg PO BID RF: 0 Eliquis 5 mg Tablet 5 mg PO BID RF: 0 fluticasone propion-salmeterol [Wixela Inhub] 250-50 mcg/dose Blister With Device 1 inh INHALATION BID RF: 0 metoclopramide HCl 10 mg tablet 5 mg PO TID RF: 0 Referrals: Tiff Hartmann PA-C [Primary Care Provider] -
[2021-02-14 13:12] LABS: Add Manual Diff / Slide Review NO; Basophils Absolute Auto 100 /uL (0-100); Basophils Percent Auto 1.1 % (0-2); Eosinophils Absolute Auto 200 /uL (0-450); Eosinophils Percent Auto 1.8 % (2-4); Hematocrit 36.9 % (36-46); Hemoglobin 12.3 g/dL (12.0-16.0); Lymphocytes Absolute Auto 1600 /uL (1100-4500); Lymphocytes Percent Auto 16.8 % (25-40); Mean Corpuscular HGB Conc 33.3 % (30-36); Mean Corpuscular Hemoglobin 31.7 PG (26-34); Mean Corpuscular Volume 95.1 fL (80-100); Monocytes Absolute Auto 800 /uL (0-900); Monocytes Percent Auto 8.1 % (3-14); Neutrophils Absolute Auto 6900 /uL (1500-7000); Neutrophils Percent Auto 72.2 % (50-75); Platelet Count 184 X10^3/uL (150-400); Red Blood Cell Count 3.88 X10^6/uL (4.0-5.2); Red Cell Distribution Width 15.2 % (11.6-14.8); White Blood Cell Count 9.6 X10^3/uL (4.5-11.0)
[2021-02-14 13:26] LABS: Alanine Aminotransferase 17 IU/L (<35); Albumin 3.9 g/dL (3.5-5.0); Albumin Globulin Ratio 1.2 (1.0-2.8); Alkaline Phosphatase 50 U/L (38-126); Aspartate Aminotransferase 24 IU/L (14-36); BUN Creatinine Ratio 18.2 (6-22); Bilirubin Total 0.3 mg/dL (0.2-1.3); Blood Urea Nitrogen 14 mg/dL (7-17); Calcium 9.4 mg/dL (8.4-10.2); Carbon Dioxide 23 mmol/L (22-32); Chloride 106 mmol/L (98-107); Creatine Kinase 63 U/L (30-135); Estimated Glomerular Filt Rate > 60.0 mL/min (>60); Globulin 3.2 g/dL (1.7-4.1); Glucose 122 mg/dL (80-110); HEMOLYSIS < 15 (0-50); Lipase 358 U/L (23-300); Potassium 3.2 mmol/L (3.4-5.1); Sodium 137 mmol/L (137-145); Total Protein 7.1 g/dL (6.3-8.2)
[2021-02-14 13:37] LABS: Troponin I < 0.012 ng/mL (0.01-0.034)
== END 2021-02-14 15:23 | disposition home or self-care (01) ==
PROVIDERS: Emergency Provider Emergency Medicine; PCP Physician Assistant
DX: E16.2 Hypoglycemia, unspecified (principal); R07.9 Chest pain, unspecified; R42 Dizziness and giddiness
CPT/HCPCS: 36415; 71045; 80053; 82550; 83690; 83735; 84484; 85025; 93005; 93010; 99284

== ENCOUNTER → 2021-02-16 07:06 | Outpatient (CLI) | payer MEDICARE, OTHER, SELFPAY ==
[2021-02-16 08:09] LABS: Add Manual Diff / Slide Review NO; Basophils Absolute Auto 100 /uL (0-100); Eosinophils Absolute Auto 200 /uL (0-450); Eosinophils Percent Auto 3.5 % (2-4); Hematocrit 37.7 % (36-46); Hemoglobin 12.4 g/dL (12.0-16.0); Lymphocytes Absolute Auto 1800 /uL (1100-4500); Lymphocytes Percent Auto 26.9 % (25-40); Mean Corpuscular HGB Conc 32.8 % (30-36); Mean Corpuscular Hemoglobin 31.1 PG (26-34); Mean Corpuscular Volume 94.7 fL (80-100); Monocytes Absolute Auto 500 /uL (0-900); Monocytes Percent Auto 7.6 % (3-14); Neutrophils Absolute Auto 4000 /uL (1500-7000); Platelet Count 197 X10^3/uL (150-400); Red Blood Cell Count 3.98 X10^6/uL (4.0-5.2); Red Cell Distribution Width 15.5 % (11.6-14.8); White Blood Cell Count 6.6 X10^3/uL (4.5-11.0)
[2021-02-16 08:53] LABS: HEMOLYSIS < 15 (0-50); Iron 90 ug/dL (37-170)
[2021-02-16 09:05] LABS: Percent Iron Saturation 32 % (15-50); Total Iron Binding Capacity 283 ug/dL (265-497); Transferrin 223 mg/dL (206-381)
[2021-02-16 09:29] LABS: Ferritin 19 ng/mL (11-264)
== END ==
PROVIDERS: PCP Physician Assistant; Referring Provider Physician Assistant; Visit Provider Physician Assistant
DX: D64.9 Anemia, unspecified (principal)
CPT/HCPCS: 36415; 82728; 83540; 83550; 85025

== ENCOUNTER → 2021-03-22 08:33 | Outpatient (CLI) | payer MEDICARE, OTHER, SELFPAY ==
[2021-03-22 10:16] LABS: Add Manual Diff / Slide Review NO; Basophils Absolute Auto 100 /uL (0-100); Basophils Percent Auto 1.4 % (0-2); Eosinophils Absolute Auto 200 /uL (0-450); Eosinophils Percent Auto 3.3 % (2-4); Hematocrit 38.8 % (36-46); Hemoglobin 12.9 g/dL (12.0-16.0); Lymphocytes Absolute Auto 1700 /uL (1100-4500); Lymphocytes Percent Auto 26.6 % (25-40); Mean Corpuscular HGB Conc 33.3 % (30-36); Mean Corpuscular Hemoglobin 31.6 PG (26-34); Mean Corpuscular Volume 94.9 fL (80-100); Monocytes Absolute Auto 500 /uL (0-900); Monocytes Percent Auto 7.2 % (3-14); Neutrophils Absolute Auto 4000 /uL (1500-7000); Neutrophils Percent Auto 61.5 % (50-75); Platelet Count 198 X10^3/uL (150-400); Red Blood Cell Count 4.09 X10^6/uL (4.0-5.2); Red Cell Distribution Width 14.2 % (11.6-14.8); White Blood Cell Count 6.5 X10^3/uL (4.5-11.0)
[2021-03-22 10:44] LABS: Alanine Aminotransferase 20 IU/L (<35); Albumin 3.7 g/dL (3.5-5.0); Albumin Globulin Ratio 1.2 (1.0-2.8); Alkaline Phosphatase 58 U/L (38-126); Aspartate Aminotransferase 25 IU/L (14-36); BUN Creatinine Ratio 14.5 (6-22); Bilirubin Total 0.4 mg/dL (0.2-1.3); Blood Urea Nitrogen 12 mg/dL (7-17); Calcium 9.2 mg/dL (8.4-10.2); Carbon Dioxide 27 mmol/L (22-32); Chloride 106 mmol/L (98-107); Estimated Glomerular Filt Rate > 60.0 mL/min (>60); Globulin 3.1 g/dL (1.7-4.1); Glucose 97 mg/dL (80-110); HEMOLYSIS < 15 (0-50); Potassium 4.2 mmol/L (3.4-5.1); Sodium 139 mmol/L (137-145); Total Protein 6.8 g/dL (6.3-8.2)
[2021-03-22 11:11] LABS: HEMOLYSIS < 15 (0-50); Iron 49 ug/dL (37-170)
[2021-03-22 11:23] LABS: Percent Iron Saturation 17 % (15-50); Total Iron Binding Capacity 281 ug/dL (265-497); Transferrin 217 mg/dL (206-381)
[2021-03-23 08:46] LABS: C Peptide 3.3 ng/mL (1.1-4.4)
[2021-03-26 12:07] LABS: Proinsulin 3.3 pmol/L (0.0-10.0)
== END ==
PROVIDERS: PCP Physician Assistant; Referring Provider Physician Assistant; Visit Provider Physician Assistant
DX: E16.2 Hypoglycemia, unspecified (principal); D50.9 Iron deficiency anemia, unspecified
CPT/HCPCS: 36415; 80053; 83540; 83550; 84206; 84681; 85025; 86337

== ENCOUNTER → 2021-04-20 07:02 | Outpatient (CLI) | payer MEDICARE, OTHER, SELFPAY ==
[2021-04-20 08:06] LABS: Add Manual Diff / Slide Review NO; Basophils Absolute Auto 100 /uL (0-100); Basophils Percent Auto 1.8 % (0-2); Eosinophils Absolute Auto 100 /uL (0-450); Hematocrit 38.9 % (36-46); Hemoglobin 12.7 g/dL (12.0-16.0); Lymphocytes Absolute Auto 1300 /uL (1100-4500); Lymphocytes Percent Auto 20.4 % (25-40); Mean Corpuscular HGB Conc 32.8 % (30-36); Mean Corpuscular Hemoglobin 31.7 PG (26-34); Mean Corpuscular Volume 96.9 fL (80-100); Monocytes Absolute Auto 400 /uL (0-900); Monocytes Percent Auto 6.5 % (3-14); Neutrophils Absolute Auto 4300 /uL (1500-7000); Neutrophils Percent Auto 69.3 % (50-75); Platelet Count 213 X10^3/uL (150-400); Red Blood Cell Count 4.01 X10^6/uL (4.0-5.2); Red Cell Distribution Width 13.9 % (11.6-14.8); White Blood Cell Count 6.3 X10^3/uL (4.5-11.0)
[2021-04-20 08:22] LABS: HEMOLYSIS < 15 (0-50); Iron 110 ug/dL (37-170)
[2021-04-20 08:34] LABS: Percent Iron Saturation 38 % (15-50); Total Iron Binding Capacity 293 ug/dL (265-497); Transferrin 249 mg/dL (206-381)
[2021-04-20 09:49] LABS: Ferritin 25 ng/mL (11-264)
== END ==
PROVIDERS: PCP Physician Assistant; Referring Provider Physician Assistant; Visit Provider Physician Assistant
DX: D64.9 Anemia, unspecified (principal)
CPT/HCPCS: 36415; 82728; 83540; 83550; 85025

== ENCOUNTER → 2021-04-25 07:08 | Outpatient (CLI) | payer MEDICARE, OTHER, SELFPAY ==
[2021-04-25 08:49] LABS: Alanine Aminotransferase 22 IU/L (<35); Albumin 3.9 g/dL (3.5-5.0); Albumin Globulin Ratio 1.3 (1.0-2.8); Alkaline Phosphatase 52 U/L (38-126); Aspartate Aminotransferase 27 IU/L (14-36); BUN Creatinine Ratio 11.8 (6-22); Bilirubin Total 0.3 mg/dL (0.2-1.3); Blood Urea Nitrogen 11 mg/dL (7-17); Calcium 8.9 mg/dL (8.4-10.2); Carbon Dioxide 26 mmol/L (22-32); Chloride 109 mmol/L (98-107); Estimated Glomerular Filt Rate 57.9 mL/min (>60); Glucose 69 mg/dL (80-110); HEMOLYSIS < 15 (0-50); Potassium 4.1 mmol/L (3.4-5.1); Sodium 139 mmol/L (137-145); Total Protein 6.9 g/dL (6.3-8.2)
== END ==
PROVIDERS: PCP Physician Assistant; Referring Provider Physician Assistant; Visit Provider Physician Assistant
DX: D50.9 Iron deficiency anemia, unspecified (principal); E16.2 Hypoglycemia, unspecified
CPT/HCPCS: 36415; 80053

== ENCOUNTER → 2021-05-02 08:38 | Outpatient (CLI) | payer MEDICARE, OTHER, SELFPAY ==
--- NOTE | 2021-05-02 | DI.CT.S_ITS ---
PROCEDURE: CT ABDOMEN PELVIS W CON INDICATIONS: Hypoglycemia, unspecified TECHNIQUE: After the administration of oral and intravenous contrast, axial sections were acquired from the lung bases to the pubic symphysis. Coronal and sagittal reformats were performed. For radiation dose reduction, the following was used: automated exposure control, adjustment of mA and/or kV according to patient size. COMPARISON:[facility], CT, CT ABDOMEN PELVIS WITH CONTRAST, 01/30/2020, 16:42. [facility], CT, CT ABDOMEN PELVIS W CON, 09/16/2019, 17:42. FINDINGS: ABDOMEN: Lung bases: Scattered subsegmental atelectasis and/or scarring. No focal consolidation. Heart: Normal size. No pericardial effusion. Moderate coronary atheromatous plaque Liver: Hepatic steatosis. Gallbladder: Partially contracted otherwise unremarkable appearance Bile ducts: Normal. Pancreas: Normal. Spleen: Normal. Adrenals: Normal. Kidneys and Ureters: Normal. Stomach and duodenum: Moderate hiatal hernia. The appearance could reflect postsurgical changes as well. Please correlate to operative history. This is decreased in size since the prior study. Bowel: Diffuse moderate stool. No evidence of bowel obstruction. Other: No free fluid or air. Abdominal nodes: Normal. Aorta and IVC: Normal in size. Scattered atheromatous calcifications. Ventral wall: Normal. PELVIS: Bladder: Normal. Inguinal region: No hernia. Pelvic nodes: Normal. Bones: No suspicious bony lesions. No vertebral body compression fractures. Diffuse osteopenia. Grade 1 anterolisthesis of L4 on L5. IMPRESSION: Moderate hiatal hernia although the appearance could reflect postsurgical change and recommend correlation operative history. This is decreased in size since the prior study. Elsewhere, no acute abnormality. Hepatic steatosis. Additional chronic/incidental findings as above. Dictated by: Saul Tolliver M.D. on 05/02/2021 at 10:02 Approved by: Saul Tolliver M.D. on 05/02/2021 at 10:21
== END ==
PROVIDERS: PCP Physician Assistant; Referring Provider Physician Assistant; Visit Provider Physician Assistant
DX: E16.2 Hypoglycemia, unspecified (principal); K44.9 Diaphragmatic hernia without obstruction or gangrene; K76.0 Fatty (change of) liver, not elsewhere classified; I25.10 Atherosclerotic heart disease of native coronary artery without angina pectoris; I70.0 Atherosclerosis of aorta
CPT/HCPCS: 74177; Q9967

== ENCOUNTER → 2021-09-14 10:28 | Outpatient (CLI) | payer MEDICARE, OTHER, SELFPAY ==
[2021-09-14 11:07] LABS: Alanine Aminotransferase 14 IU/L (<35); Albumin Globulin Ratio 1.3 (1.0-2.8); Alkaline Phosphatase 53 U/L (38-126); Aspartate Aminotransferase 22 IU/L (14-36); Bilirubin Total 0.6 mg/dL (0.2-1.3); Blood Urea Nitrogen 15 mg/dL (7-17); Calcium 9.6 mg/dL (8.4-10.2); Carbon Dioxide 23 mmol/L (22-32); Chloride 107 mmol/L (98-107); Estimated Glomerular Filt Rate 49.2 mL/min (>60); Globulin 3.1 g/dL (1.7-4.1); Glucose 181 mg/dL (80-110); HEMOLYSIS < 15 (0-50); Potassium 4.1 mmol/L (3.4-5.1); Sodium 136 mmol/L (137-145); Total Protein 7.1 g/dL (6.3-8.2)
== END ==
PROVIDERS: PCP Physician Assistant; Referring Provider Physician Assistant; Visit Provider Physician Assistant
DX: E16.2 Hypoglycemia, unspecified (principal); D50.9 Iron deficiency anemia, unspecified
CPT/HCPCS: 36415; 80053

== ENCOUNTER → 2022-02-12 07:00 | Outpatient (CLI) | payer MEDICARE, OTHER, SELFPAY ==
[2022-02-12 07:57] LABS: Add Manual Diff / Slide Review NO; Basophils Absolute Auto 100 /uL (0-100); Basophils Percent Auto 1.2 % (0-2); Eosinophils Absolute Auto 200 /uL (0-450); Eosinophils Percent Auto 2.3 % (2-4); Hematocrit 39.3 % (36-46); Hemoglobin 13.1 g/dL (12.0-16.0); Lymphocytes Absolute Auto 1100 /uL (1100-4500); Mean Corpuscular HGB Conc 33.4 % (30-36); Mean Corpuscular Hemoglobin 32.5 PG (26-34); Mean Corpuscular Volume 97.4 fL (80-100); Monocytes Absolute Auto 500 /uL (0-900); Monocytes Percent Auto 6.9 % (3-14); Neutrophils Absolute Auto 5400 /uL (1500-7000); Neutrophils Percent Auto 74.6 % (50-75); Platelet Count 212 X10^3/uL (150-400); Red Blood Cell Count 4.03 X10^6/uL (4.0-5.2); Red Cell Distribution Width 13.6 % (11.6-14.8); White Blood Cell Count 7.2 X10^3/uL (4.5-11.0)
[2022-02-12 08:16] LABS: Blood Urea Nitrogen 9 mg/dL (7-17); Calcium 8.5 mg/dL (8.4-10.2); Carbon Dioxide 23 mmol/L (22-32); Chloride 111 mmol/L (98-107); Cholesterol 202 mg/dL (140-199); Estimated Glomerular Filt Rate > 60 mL/min (>60); Glucose 90 mg/dL (80-110); HDL Cholesterol 73 mg/dL (40-60); HEMOLYSIS < 15 (0-50); LDL Cholesterol Calculated 106 mg/dL (<100); Potassium 4.2 mmol/L (3.4-5.1); Sodium 142 mmol/L (137-145); Triglycerides 114 mg/dL (35-150)
== END ==
PROVIDERS: PCP Physician Assistant; Referring Provider Internal Medicine Cardiovascular Disease; Visit Provider Internal Medicine Cardiovascular Disease
DX: E78.5 Hyperlipidemia, unspecified (principal); I48.0 Paroxysmal atrial fibrillation
CPT/HCPCS: 36415; 80048; 80061; 85025

== ENCOUNTER 2022-11-20 18:56 | Emergency (ER) | payer MEDICARE, OTHER, SELFPAY ==
[2022-11-20] VITALS (22 sets, daily range): BP systolic 114–138; BP diastolic 61–70; PULSE 69–87; RESP 18–49; TEMP 36.6; O2SAT 92–95
--- NOTE | 2022-11-20 19:13 | DI.RAD.S_ITS ---
PROCEDURE: XR CHEST 1V INDICATIONS: chest pain TECHNIQUE: One view of the chest was acquired. COMPARISON: [facility], CR, XR CHEST 1V, 02/14/2021, 12:52. FINDINGS: Surgical changes and devices: None. Lungs and pleura: Lungs are clear. No pleural effusions or pneumothorax. Mediastinum: Mediastinal contours appear normal. Heart size is enlarged. Bones and chest wall: No suspicious bony lesions. Overlying soft tissues appear unremarkable. IMPRESSION: No acute pulmonary process. Dictated by: Marimar Greene M.D. on 11/20/2022 at 19:41 Approved by: Marimar Greene M.D. on 11/20/2022 at 19:41
[2022-11-20 19:48] LABS: Add Manual Diff / Slide Review NO; Basophils Absolute Auto 100 /uL (0-100); Basophils Percent Auto 0.6 % (0-2); Eosinophils Absolute Auto 200 /uL (0-450); Eosinophils Percent Auto 1.8 % (2-4); Hematocrit 37.5 % (36-46); Hemoglobin 12.7 g/dL (12.0-16.0); Lymphocytes Absolute Auto 2200 /uL (1100-4500); Lymphocytes Percent Auto 17.6 % (25-40); Mean Corpuscular HGB Conc 33.8 % (30-36); Mean Corpuscular Hemoglobin 32.5 PG (26-34); Mean Corpuscular Volume 96.2 fL (80-100); Monocytes Absolute Auto 700 /uL (0-900); Monocytes Percent Auto 5.7 % (3-14); Neutrophils Absolute Auto 9300 /uL (1500-7000); Neutrophils Percent Auto 74.3 % (50-75); Platelet Count 266 X10^3/uL (150-400); Red Cell Distribution Width 13.3 % (11.6-14.8); White Blood Cell Count 12.5 X10^3/uL (4.5-11.0)
--- NOTE | 2022-11-20 19:51 | ED.GENADULT ---
HPI - General Adult General Chief complaint: Dizziness Stated complaint: Dizzy Time Seen by Provider: 11/20/22 19:18 Source: patient, family and EMS Mode of arrival: EMS Limitations: no limitations History of Present Illness HPI narrative: Patient is an 82-year-old female who is brought in by EMS for evaluation of episodes of dizziness. She states that the symptoms started this afternoon. Stated that whenever she would get up from her chair she felt very unsteady on her feet. She was not having any other associated symptoms include headache or shortness of breath or chest pain or vision changes. She states it is more of a lightheadedness rather than vertigo like sensation. She has been eating and drinking like normal. No fevers. She does feel somewhat better when she is either sitting down or lying down. She also can reproduce some of the symptoms by turning her head. Related Data Home Medications Medication Instructions Recorded Confirmed fluoxetine 40 mg capsule 20 mg PO QAM 09/16/19 02/14/21 alprazolam 0.25 mg tablet 25 mg PO BID PRN Anxiety 06/22/20 02/14/21 apixaban 5 mg tablet (Eliquis) 5 mg PO BID 06/22/20 02/14/21 diltiazem HCl 180 mg 180 mg PO QAM 06/22/20 02/14/21 capsule,extended release 24 hr (Cartia XT) omeprazole 20 mg tablet,delayed 20 mg PO BID 06/22/20 02/14/21 release rosuvastatin 40 mg tablet 40 mg PO BEDTIME 06/22/20 02/14/21 tiotropium bromide 18 mcg capsule 18 mcg inhalation QAM 06/22/20 02/14/21 with inhalation device (Spiriva with HandiHaler) trazodone 50 mg tablet 25 mg PO BEDTIME 06/22/20 02/14/21 fluticasone 250 mcg-salmeterol 50 1 inh inhalation BID 02/14/21 02/14/21 mcg/dose blistr powdr for inhalation (Wixela Inhub) metoclopramide HCl 10 mg tablet 5 mg PO TID 02/14/21 02/14/21 Previous Rx's Medication Instructions Recorded meclizine 25 mg tablet 25 mg PO BID PRN dizziness #14 tabs 11/20/22 Allergies Allergy/AdvReac Type Severity Reaction Status Date / Time No Known Drug Allergies Allergy Verified 02/14/21 12:50 Review of Systems Constitutional Constitutional: Reports system reviewed and no additional complaints, except as documented Eyes Eyes: Reports system reviewed and no additional complaints, except as documented Cardiovascular Cardiovascular: Reports system reviewed and no additional complaints, except as documented Respiratory Respiratory: Reports system reviewed and no additional complaints, except as documented Gastrointestinal Gastrointestinal: Reports system reviewed and no additional complaints, except as documented Integumentary/Breasts Skin/Breast: Reports system reviewed and no additional complaints, except as documented Neurologic Neurologic: Reports system reviewed and no additional complaints, except as documented Patient History Medical History Atrial fibrillation COPD (chronic obstructive pulmonary disease) Surgical History History of History of repair of hiatal hernia Social History Smoking Status: Former smoker Smoking Status: Former smoker alcohol intake frequency: 0-2 drinks per day Substance Use Type: does not use Exam Initial Vital Signs Initial Vital Signs: Vital Signs Temperature 97.8 F 11/20/22 19:00 Pulse Rate 76 11/20/22 19:00 Respiratory Rate 18 11/20/22 19:00 Blood Pressure 127/65 11/20/22 19:00 Pulse Oximetry 95 11/20/22 19:00 Oxygen Delivery Method Room Air 11/20/22 19:00 Const General: cooperative, comfortable and No ill appearing HENMT Head: normal to inspection and normocephalic Resp Effort & Inspection: normal respiratory effort Auscultation: clear to auscultation bilaterally Cardio Rate: regular rate Rhythm: regular rhythm GI Inspection: normal to inspection Skin General: no rashes or lesions noted Neuro General: patient alert, patient awake, patient oriented x3 and moves all extremities Cognition: normal cognition Speech: speech normal Gait: normal gait Extrem General: normal to inspection and capillary refill normal Psych Appearance: grossly normal and well kempt Course Orders Ordered: ED Orders 11/20/22 19:12 EKG-12 Lead Stat 11/20/22 19:13 XR chest 1V Stat 11/20/22 19:39 BNP [NT-proBNP (BNP-Adult 18+)] Stat Complete Blood Count AUTO DIFF Stat Comprehensive Metabolic Panel Stat Lipase Stat Magnesium Stat PTT Partial Thromboplastin Nathaniel Stat Prothrombin Time INR Stat Troponin & CK Cardiac Panel Stat 11/20/22 21:05 CT head/brain wo con Stat 11/20/22 22:20 Urine Culture Stat Urine Microscopic Stat Discontinued Medications Sodium Chloride (Normal Saline 0.9%) 1,000 mls @ 500 mls/hr IV BOLUS ONE Stop: 11/20/22 23:04 Last Infusion: 11/20/22 23:17 Dose: 0 mls/hr Documented By: Admin: 11/20/22 21:21 Dose: 500 mls/hr Documented By: BS Meclizine HCl (Meclizine Hcl 12.5 Mg Tablet) 25 mg PO NOW ONE Stop: 11/20/22 21:06 Last Admin: 11/20/22 21:21 Dose: 25 mg Documented By: SEE Vital Signs Vital signs: Vital Signs - 8 hr 11/20/22 19:00 11/20/22 19:01 11/20/22 19:11 Temperature 97.8 F Pulse Rate 76 80 Respiratory Rate 18 38 H Blood Pressure 127/65 127/65 Pulse Oximetry 95 93 Oxygen Delivery Method Room Air 11/20/22 19:11 11/20/22 19:15 11/20/22 19:30 Temperature Pulse Rate 75 76 Respiratory Rate 34 H 49 H Blood Pressure 126/65 Pulse Oximetry 92 93 Oxygen Delivery Method 11/20/22 19:30 11/20/22 19:45 11/20/22 20:00 Temperature Pulse Rate 74 70 Respiratory Rate 35 H 31 H Blood Pressure 127/63 Pulse Oximetry 94 94 Oxygen Delivery Method Room Air 11/20/22 20:00 11/20/22 20:15 11/20/22 20:30 Temperature Pulse Rate 69 72 Respiratory Rate 25 H 26 H Blood Pressure 118/61 Pulse Oximetry 95 94 Oxygen Delivery Method 11/20/22 20:30 11/20/22 20:45 11/20/22 21:00 Temperature Pulse Rate 76 76 Respiratory Rate 24 20 Blood Pressure 138/70 Pulse Oximetry 93 93 Oxygen Delivery Method 11/20/22 21:00 11/20/22 21:20 11/20/22 21:30 Temperature Pulse Rate 79 77 73 Respiratory Rate 23 31 H 30 H Blood Pressure Pulse Oximetry 94 94 95 Oxygen Delivery Method 11/20/22 21:31 11/20/22 21:31 11/20/22 21:45 Temperature Pulse Rate 70 74 Respiratory Rate 21 20 Blood Pressure 136/62 Pulse Oximetry 95 95 Oxygen Delivery Method 11/20/22 22:00 11/20/22 22:00 11/20/22 22:15 Temperature Pulse Rate 73 87 Respiratory Rate 18 27 H Blood Pressure 123/62 Pulse Oximetry 95 94 Oxygen Delivery Method Room Air 11/20/22 22:30 11/20/22 22:45 11/20/22 23:00 Temperature Pulse Rate 77 70 71 Respiratory Rate Blood Pressure Pulse Oximetry 95 95 93 Oxygen Delivery Method 11/20/22 23:15 11/20/22 23:19 Temperature Pulse Rate 71 Respiratory Rate Blood Pressure 114/69 Pulse Oximetry 95 Oxygen Delivery Method Medical Decision Making Lab Data Lab results reviewed: Yes I reviewed the patient's lab results. 11/20/22 19:39 11/20/22 19:39 Labs: Lab Results 11/20/22 11/20/22 11/20/22 Range/Units 19:39 19:39 19:39 WBC 12.5 H (4.5-11.0) X10^3/uL RBC 3.90 L (4.0-5.2) X10^6/uL Hgb 12.7 (12.0-16.0) g/dL Hct 37.5 (36-46) % MCV 96.2 (80-100) fL MCH 32.5 (26-34) PG MCHC 33.8 (30-36) % RDW 13.3 (11.6-14.8) % Plt Count 266 (150-400) X10^3/uL Neut % (Auto) 74.3 (50-75) % Lymph % (Auto) 17.6 L (25-40) % [place] % (Auto) 5.7 (3-14) % Eos % (Auto) 1.8 L (2-4) % Baso % (Auto) 0.6 (0-2) % Neut # (Auto) 9300 H (5064-6839) /uL Lymph # (Auto) 2200 (7039-1492) /uL [place] # (Auto) 700 (0-900) /uL Eos # (Auto) 200 (0-450) /uL Baso # (Auto) 100 (0-100) /uL PT 13.5 H (10.1-12.7) SECONDS INR 1.2 (0.9-1.3) APTT 28 (26-36) SECONDS Sodium 137 (137-145) mmol/L Potassium 3.9 (3.4-5.1) mmol/L Chloride 106 (98-107) mmol/L Carbon Dioxide 25 (22-32) mmol/L BUN 11 (7-17) mg/dL Creatinine 0.72 (0.52-1.04) mg/dL Estimated GFR > 60 (>60) mL/min BUN/Creatinine Ratio 15.3 (6-22) Glucose 95 (80-110) mg/dL Calcium 8.5 (8.4-10.2) mg/dL Magnesium 2.2 (1.6-2.3) mg/dL Total Bilirubin 0.2 (0.2-1.3) mg/dL AST 24 (14-36) IU/L ALT 17 (<35) IU/L Alkaline Phosphatase 78 (38-126) U/L Total Creatine Kinase 63 (30-135) U/L CK-MB (CK-2) TNP CK-MB (CK-2) Rel Index TNP Troponin I < 0.012 (0.01-0.034) ng/mL NT-Pro-B Natriuret Pep (<450) pg/mL Total Protein 7.3 (6.3-8.2) g/dL Albumin 3.4 L (3.5-5.0) g/dL Globulin 3.9 (1.7-4.1) g/dL Albumin/Globulin Ratio 0.9 L (1.0-2.8) Lipase 45 (23-300) U/L Urine RBC (0-5/HPF) Urine WBC (0-5/HPF) Urine Bacteria (None) Ur Culture Indicated? 11/20/22 11/20/22 Range/Units 19:39 22:20 WBC (4.5-11.0) X10^3/uL RBC (4.0-5.2) X10^6/uL Hgb (12.0-16.0) g/dL Hct (36-46) % MCV (80-100) fL MCH (26-34) PG MCHC (30-36) % RDW (11.6-14.8) % Plt Count (150-400) X10^3/uL Neut % (Auto) (50-75) % Lymph % (Auto) (25-40) % [place] % (Auto) (3-14) % Eos % (Auto) (2-4) % Baso % (Auto) (0-2) % Neut # (Auto) (2694-5014) /uL Lymph # (Auto) (6872-4499) /uL [place] # (Auto) (0-900) /uL Eos # (Auto) (0-450) /uL Baso # (Auto) (0-100) /uL PT (10.1-12.7) SECONDS INR (0.9-1.3) APTT (26-36) SECONDS Sodium (137-145) mmol/L Potassium (3.4-5.1) mmol/L Chloride (98-107) mmol/L Carbon Dioxide (22-32) mmol/L BUN (7-17) mg/dL Creatinine (0.52-1.04) mg/dL Estimated GFR (>60) mL/min BUN/Creatinine Ratio (6-22) Glucose (80-110) mg/dL Calcium (8.4-10.2) mg/dL Magnesium (1.6-2.3) mg/dL Total Bilirubin (0.2-1.3) mg/dL AST (14-36) IU/L ALT (<35) IU/L Alkaline Phosphatase (38-126) U/L Total Creatine Kinase (30-135) U/L CK-MB (CK-2) CK-MB (CK-2) Rel Index Troponin I (0.01-0.034) ng/mL NT-Pro-B Natriuret Pep 241 (<450) pg/mL Total Protein (6.3-8.2) g/dL Albumin (3.5-5.0) g/dL Globulin (1.7-4.1) g/dL Albumin/Globulin Ratio (1.0-2.8) Lipase (23-300) U/L Urine RBC 1-5/hpf (0-5/HPF) Urine WBC >100/hpf H (0-5/HPF) Urine Bacteria Many (>30) H (None) Ur Culture Indicated? Specimen cultured Urine Dip Bedside Urine Glucose Negative Bedside Urine Bilirubin - Negative Bedside Urine Ketone - Negative Urine Specific [place] 1.015 Bedside Urine Occult Blood + Bedside Urine pH 6.0 Bedside Urine Protein - Negative Bedside Urine Urobilinogen - Negative Bedside Urine Nitrite - Negative Bedside Urine Leukocytes ++ 125 Esterase Point of care testing: Urine Dip Bedside Urine Glucose Negative Bedside Urine Bilirubin - Negative Bedside Urine Ketone - Negative Urine Specific [place] 1.015 Bedside Urine Occult Blood + Bedside Urine pH 6.0 Bedside Urine Protein - Negative Bedside Urine Urobilinogen - Negative Bedside Urine Nitrite - Negative Bedside Urine Leukocytes ++ 125 Esterase Imaging Data Chest x-ray: Radiologist's Impression: PROCEDURE:? XR CHEST 1V ? INDICATIONS:? chest pain ? TECHNIQUE:? One view of the chest was acquired.? ? COMPARISON:? [facility], CR, XR CHEST 1V, 02/14/2021, 12:52. ? FINDINGS:? ? Surgical changes and devices:? None.? ? Lungs and pleura:? Lungs are clear.? No pleural effusions or pneumothorax.? ? Mediastinum:? Mediastinal contours appear normal.? Heart size is enlarged. ? Bones and chest wall:? No suspicious bony lesions.? Overlying soft tissues appear unremarkable.? ? IMPRESSION:? No acute pulmonary process. CT scan - head: Radiologist's Impression: PROCEDURE:? CT HEAD/BRAIN WO CON ? INDICATIONS:? dizziness ? TECHNIQUE:? Noncontrast 4.5 mm thick angled axial sections acquired from the foramen magnum to the vertex, with coronal and sagittal reformats.? For radiation dose reduction, the following was used:? automated exposure control, adjustment of mA and/or kV according to patient size.? ? COMPARISON:? [facility], CT, CT HEAD WITHOUT CONTRAST, 02/04/2020, 14:54. ? FINDINGS:? Image quality:? Excellent.? ? CSF spaces:? Basal cisterns are patent.? No extra-axial fluid collections.? There is mild cerebral volume loss, with resultant ventricular and sulcal prominence.? ? Brain:? No intracranial hemorrhage, mass, or mass effect.? There are subcortical, periventricular and deep white matter hypodensities consistent with moderate chronic small vessel ischemic changes.? The sheets-white matter junction appears preserved.? There is intracranial internal carotid artery atherosclerosis.? ? Skull and face:? Calvarium and visualized facial bones appear intact.? There is diffuse heterogeneous hypodensity of the visualized osseous structures. ? Sinuses:? Visualized sinuses and mastoids are clear.? ? IMPRESSION:? ? 1. No acute intracranial abnormality. ? 2. Diffuse heterogeneous hypodensity of the visualized osseous structures suggest sequelae of hyperparathyroidism and renal disease.? Recommend correlation clinically.? ? 3. Moderate chronic white matter small vessel ischemic changes and mild cerebral volume loss. ECG Data Attestation: I personally reviewed and interpreted this ECG as follows: Interpretation: Sinus rhythm Ventricular rate is 75 Left axis deviation Normal QRS Normal QTC No ST T wave changes MDM Narrative Medical decision making narrative: During her time here in the emergency department specifically after the meclizine in the fluids patient states that her symptoms have vastly improved. She was able to walk to the bathroom. Was tolerating oral intake. Her head CT shows no acute pathology. She is not having any urinary symptoms. Her urinalysis does have some findings that would be consistent with a urinary tract infection however we will hold on any antibiotics until the culture results based on the lack of symptoms. I have low suspicion for CVA/TIA. Despite her response to the meclizine she describes her symptoms as more of a lightheadedness and not a vertigo. Patient does have history of atrial fibrillation. She is not in AFib here and she states that when the symptoms were occurring earlier today she did not feel like her heart was beating fast or skipping beats. Will discharge patient home with instructions to follow-up with her primary doctor. She was given return precautions. Patient states she feels comfortable going home. Discharge Plan Departure Patient Disposition: Home Clinical Impression: Lightheadedness Instructions: DI for Dizziness-Nonvertigo Activity Restrictions/Additional Instructions: I recommend that you continue to take all of your medications as directed and be sure that you were staying hydrated. Return to the emergency department for any new or worsening symptoms. Contact your primary doctor for a follow-up. Prescriptions: New meclizine 25 mg tablet 25 mg PO BID PRN (Reason: dizziness) Qty: 14 0RF No Action fluoxetine 40 mg capsule 20 mg PO QAM Patient Comments: TAKE 1 CAPSULE BY MOUTH ONCE DAILY IN THE MORNING trazodone 50 mg Tablet 25 mg PO BEDTIME diltiazem HCl [Cartia XT] 180 mg capsule,extended release 24hr 180 mg PO QAM alprazolam 0.25 mg tablet 25 mg PO BID PRN (Reason: Anxiety) Patient Comments: TAKE 1 TABLET BY MOUTH TWICE DAILY FOR 30 DAYS rosuvastatin 40 mg tablet 40 mg PO BEDTIME Patient Comments: TAKE 1 TABLET BY MOUTH NIGHTLY Spiriva with HandiHaler 18 mcg capsule, w/inhalation device 18 mcg INHALATION QAM omeprazole 20 mg Tablet,Delayed Release (Dr/Ec) 20 mg PO BID Eliquis 5 mg Tablet 5 mg PO BID fluticasone propion-salmeterol [Wixela Inhub] 250-50 mcg/dose Blister With Device 1 inh INHALATION BID metoclopramide HCl 10 mg tablet 5 mg PO TID Patient Comments: TAKE 1 2 (ONE HALF) TABLET BY MOUTH THREE TIMES DAILY. TAKE 30 MINUTESBEFORE MEALS. Referrals: Tiff Hartmann PA-C [Primary Care Provider] - Stand Alone Forms: Patient Portal/API
[2022-11-20 19:54] LABS: INR 1.2 (0.9-1.3); Prothrombin Time 13.5 SECONDS (10.1-12.7)
[2022-11-20 19:56] LABS: PTT Partial Thromboplastin Tim 28 SECONDS (26-36)
[2022-11-20 20:00] LABS: Alanine Aminotransferase 17 IU/L (<35); Albumin 3.4 g/dL (3.5-5.0); Albumin Globulin Ratio 0.9 (1.0-2.8); Alkaline Phosphatase 78 U/L (38-126); Aspartate Aminotransferase 24 IU/L (14-36); BUN Creatinine Ratio 15.3 (6-22); Bilirubin Total 0.2 mg/dL (0.2-1.3); Blood Urea Nitrogen 11 mg/dL (7-17); Calcium 8.5 mg/dL (8.4-10.2); Carbon Dioxide 25 mmol/L (22-32); Chloride 106 mmol/L (98-107); Creatine Kinase 63 U/L (30-135); Estimated Glomerular Filt Rate > 60 mL/min (>60); Globulin 3.9 g/dL (1.7-4.1); Glucose 95 mg/dL (80-110); HEMOLYSIS < 15 (0-50); Lipase 45 U/L (23-300); Magnesium 2.2 mg/dL (1.6-2.3); Potassium 3.9 mmol/L (3.4-5.1); Sodium 137 mmol/L (137-145); Total Protein 7.3 g/dL (6.3-8.2)
[2022-11-20 20:11] LABS: Troponin I < 0.012 ng/mL (0.01-0.034)
[2022-11-20 20:14] LABS: NT-proBNP (BNP-Adult 18+) 241 pg/mL (<450)
--- NOTE | 2022-11-20 21:01 | PC.NURSE ---
patient ambulated the stretcher to the door. she had 3 episodes where she reports I feel like I am just going to collapse. she reports that she felt like she was spinning. she did not fall. she was able to walk back to the stretcher okay. David delvalle.
--- NOTE | 2022-11-20 21:05 | DI.CT.S_ITS ---
PROCEDURE: CT HEAD/BRAIN WO CON INDICATIONS: dizziness TECHNIQUE: Noncontrast 4.5 mm thick angled axial sections acquired from the foramen magnum to the vertex, with coronal and sagittal reformats. For radiation dose reduction, the following was used: automated exposure control, adjustment of mA and/or kV according to patient size. COMPARISON: [facility], CT, CT HEAD WITHOUT CONTRAST, 02/04/2020, 14:54. FINDINGS: Image quality: Excellent. CSF spaces: Basal cisterns are patent. No extra-axial fluid collections. There is mild cerebral volume loss, with resultant ventricular and sulcal prominence. Brain: No intracranial hemorrhage, mass, or mass effect. There are subcortical, periventricular and deep white matter hypodensities consistent with moderate chronic small vessel ischemic changes. The sheets-white matter junction appears preserved. There is intracranial internal carotid artery atherosclerosis. Skull and face: Calvarium and visualized facial bones appear intact. There is diffuse heterogeneous hypodensity of the visualized osseous structures. Sinuses: Visualized sinuses and mastoids are clear. IMPRESSION: 1. No acute intracranial abnormality. 2. Diffuse heterogeneous hypodensity of the visualized osseous structures suggest sequelae of hyperparathyroidism and renal disease. Recommend correlation clinically. 3. Moderate chronic white matter small vessel ischemic changes and mild cerebral volume loss. Dictated by: Sumeet Greer M.D. on 11/20/2022 at 21:20 Approved by: Sumeet Greer M.D. on 11/20/2022 at 21:24
[2022-11-20] MEDS: SODIUM CHLORIDE 0.9% 1,000 ML 500 ML IV (21:21)
[2022-11-20] MEDS: MECLIZINE HCL 12.5 MG TABLET 25 MG PO (21:21)
--- NOTE | 2022-11-20 22:24 | PC.NURSE ---
patient ambulated to the bathroom and she reports i dont feel as foggy. she walked with a steady gait and reports that she feels better. David delvalle.
[2022-11-20 23:08] LABS: Bacteria Urine Many (>30); Culture Indicated Urine Specimen Cultured; RBC Urine 1-5/HPF (0-5/HPF); WBC Urine >100/HPF (0-5/HPF)
== END 2022-11-20 23:23 | disposition home or self-care (01) ==
PROVIDERS: Emergency Provider Emergency Medicine; PCP Physician Assistant
DX: R42 Dizziness and giddiness (principal); R07.9 Chest pain, unspecified; Z79.01 Long term (current) use of anticoagulants; Z79.899 Other long term (current) drug therapy
CPT/HCPCS: 36415; 70450; 71045; 80053; 81003; 81015; 82550; 83690; 83735; 83880; 84484; 85025; 85610; 85730; 87086; 93005; 99284

== ENCOUNTER 2022-11-23 08:16 | Emergency (ER) | payer MEDICARE, OTHER, SELFPAY ==
[2022-11-23 08:30] VITALS: BP 148/75; PULSE 77; RESP 16; TEMP 36.7; O2SAT 94; BMI 19.7
[2022-11-23 08:40] LABS: Appearance Urine UA CLEAR; Bilirubin Urine UA NEGATIVE (NEGATIVE); Color Urine UA YELLOW; Glucose Urine UA NEGATIVE (Negative); Ketones Urine UA NEGATIVE (NEGATIVE); Leukocyte Esterase Urine UA 3+ (NEGATIVE); Nitrite Urine UA NEGATIVE (Negative); Occult Blood Urine UA TRACE-INTACT (Negative); Protein Urine UA TRACE (Negative)
[2022-11-23 08:47] LABS: Amorphous Sediment Urine 1+; Bacteria Urine Many (>30); Culture Indicated Urine Specimen Cultured; RBC Urine 1-5/HPF (0-5/HPF); Squamous Epithelial Cell Urine 5-10 /HPF (0-5/HPF); WBC Urine 5-10/HPF (0-5/HPF)
--- NOTE | 2022-11-23 08:53 | ED.RECABL ---
HPI - Recheck/Abnormal Lab/Rx General Chief Complaint: Recheck/Abnormal Lab/Rx Stated Complaint: uti, weak, tired as of Friday Time Seen by Provider: 11/23/22 08:46 Source: patient Mode of arrival: Ambulatory History of Present Illness HPI narrative: Patient is a 82-year-old female history of atrial fibrillation, COPD, presenting today with increased tiredness. She was here and evaluated on 11/20/2022 for episodes of dizziness. She had blood work and was treated for vertigo she reports that that is significantly better. She has previously had UTI urine culture from the did not show any growth and was mixed kadie and probably a dirty catch. Patient denies any back pain abdominal pain nausea or vomiting painful or frequent urination but does have a history of UTIs. She denies any chest pain palpitations cough fever confusion numbness tingling weakness or any other symptoms. She is generally feeling better just a little bit tired. Daughter was previously worried due to severe UTI previously. Related Data Home Medications Medication Instructions Recorded Confirmed fluoxetine 40 mg capsule 20 mg PO QAM 09/16/19 02/14/21 alprazolam 0.25 mg tablet 25 mg PO BID PRN Anxiety 06/22/20 02/14/21 apixaban 5 mg tablet (Eliquis) 5 mg PO BID 06/22/20 02/14/21 diltiazem HCl 180 mg 180 mg PO QAM 06/22/20 02/14/21 capsule,extended release 24 hr (Cartia XT) omeprazole 20 mg tablet,delayed 20 mg PO BID 06/22/20 02/14/21 release rosuvastatin 40 mg tablet 40 mg PO BEDTIME 06/22/20 02/14/21 tiotropium bromide 18 mcg capsule 18 mcg inhalation QAM 06/22/20 02/14/21 with inhalation device (Spiriva with HandiHaler) trazodone 50 mg tablet 25 mg PO BEDTIME 06/22/20 02/14/21 fluticasone 250 mcg-salmeterol 50 1 inh inhalation BID 02/14/21 02/14/21 mcg/dose blistr powdr for inhalation (Wixela Inhub) metoclopramide HCl 10 mg tablet 5 mg PO TID 02/14/21 02/14/21 Previous Rx's Medication Instructions Recorded meclizine 25 mg tablet 25 mg PO BID PRN dizziness #14 tabs 11/20/22 cephalexin 500 mg capsule 500 mg PO BID 5 days #10 caps 11/23/22 Allergies Allergy/AdvReac Type Severity Reaction Status Date / Time No Known Drug Allergies Allergy Verified 11/23/22 08:34 Review of Systems Review of Systems ROS Unobtainable: All systems reviewed & are unremarkable except as noted in HPI and below Patient History Medical History Atrial fibrillation COPD (chronic obstructive pulmonary disease) Surgical History History of History of repair of hiatal hernia Social History Smoking Status: Current every day smoker Smoking Status: Current every day smoker alcohol intake frequency: 3 or more drinks per day Substance Use Type: does not use Exam Initial Vital Signs Initial Vital Signs: Vital Signs Temperature 98.0 F 11/23/22 08:30 Pulse Rate 77 11/23/22 08:30 Respiratory Rate 16 11/23/22 08:30 Blood Pressure 148/75 H 11/23/22 08:30 Pulse Oximetry 94 11/23/22 08:30 Oxygen Delivery Method Room Air 11/23/22 08:30 GENERAL: Alert pleasant 80-year-old female drinking coffee and in no acute distress. HEENT: Head atraumatic,EOMI, pupils reactive, face symmetric, moist mucous membranes CARDIOVASCULAR: Regular rate and rhythm without murmurs, rubs or gallops. RESPIRATORY: Breath sounds equal bilaterally, no wheezes rales or rhonchi. ABDOMEN: Soft, nontender. Normoactive bowel sounds all 4 quadrants. No guarding or rebound. : No CVA tenderness, no suprapubic tenderness EXTREMITIES: Normal range of motion, no clubbing or edema. Neurovascularly intact NEUROLOGICAL: Alert and oriented x4. SKIN: Warm, dry, no laceration, no petechiae, no rashes or lesions. Course Orders Ordered: ED Orders 11/23/22 08:35 Urinalysis and Microscopic Stat Urine Culture Stat Vital Signs Vital signs: Vital Signs - 8 hr 11/23/22 08:30 Temperature 98.0 F Pulse Rate 77 Respiratory Rate 16 Blood Pressure 148/75 H Pulse Oximetry 94 Oxygen Delivery Method Room Air MDM - Recheck/Abnormal Lab/Rx Lab Data Labs: Lab Results 11/23/22 Range/Units 08:35 Urine RBC 1-5/hpf (0-5/HPF) Urine WBC 5-10/hpf H (0-5/HPF) Ur Squamous Epith Cells 5-10 /hpf H (0-5/HPF) Amorphous Sediment 1+ Urine Bacteria Many (>30) H (None) Ur Culture Indicated? Specimen cultured MDM Narrative Medical decision making narrative: Alert well-appearing 82-year-old female feeling tired today. She had blood work and things done 2 days ago she is afebrile normotensive with a normal heart rate. She appears well drink her coffee. She is no flank pain suprapubic pain. Urinalysis does show some hematuria bacteria leukocytes. She previously had 2 UTIs and 2020 1 was E coli any other Staphylococcus. She overall does not appear septic. We discussed that if symptoms worsen confusion worsened that she can return for blood work over at this time seems reasonable to start her on Keflex to see if it improves any of her symptoms. Discharge Plan Departure Patient Disposition: Home Clinical Impression: Acute UTI Instructions: DI for Urinary Tract Infection (UTI) Activity Restrictions/Additional Instructions: *You have been diagnosed with UTI *What to do: At this time will start you on antibiotics to see if it improves your symptoms urine culture will take about 3 days we may call you if we need to change her antibiotics if you do not hear from us finish antibiotic as prescribed *Continue to take medications as directed Keflex 500 mg twice a day for 5 days sent to [facility] in [place] *Follow up with your primary care provider in 2-3 days or call [phone] *Return to ER if you should have increasing confusion fever vomiting weakness or any new, worsening or concerning symptoms Prescriptions: New cephalexin 500 mg capsule 500 mg PO BID 5 Days Qty: 10 0RF No Action fluoxetine 40 mg capsule 20 mg PO QAM Patient Comments: TAKE 1 CAPSULE BY MOUTH ONCE DAILY IN THE MORNING trazodone 50 mg Tablet 25 mg PO BEDTIME diltiazem HCl [Cartia XT] 180 mg capsule,extended release 24hr 180 mg PO QAM alprazolam 0.25 mg tablet 25 mg PO BID PRN (Reason: Anxiety) Patient Comments: TAKE 1 TABLET BY MOUTH TWICE DAILY FOR 30 DAYS rosuvastatin 40 mg tablet 40 mg PO BEDTIME Patient Comments: TAKE 1 TABLET BY MOUTH NIGHTLY Spiriva with HandiHaler 18 mcg capsule, w/inhalation device 18 mcg INHALATION QAM omeprazole 20 mg Tablet,Delayed Release (Dr/Ec) 20 mg PO BID Eliquis 5 mg Tablet 5 mg PO BID meclizine 25 mg tablet 25 mg PO BID PRN (Reason: dizziness) Qty: 14 0RF fluticasone propion-salmeterol [Wixela Inhub] 250-50 mcg/dose Blister With Device 1 inh INHALATION BID metoclopramide HCl 10 mg tablet 5 mg PO TID Patient Comments: TAKE 1 2 (ONE HALF) TABLET BY MOUTH THREE TIMES DAILY. TAKE 30 MINUTESBEFORE MEALS. Referrals: Tiff Hartmann PA-C [Primary Care Provider] - Stand Alone Forms: Patient Portal/API
[2022-11-23 08:54] LABS: pH Urine UA 6.5 (4.5-8.0)
[2022-11-23 09:08] VITALS: BP 112/62; PULSE 76; RESP 16; TEMP 36.7; O2SAT 98
== END 2022-11-23 09:10 | disposition home or self-care (01) ==
PROVIDERS: Emergency Provider Emergency Medicine; PCP Physician Assistant
DX: N39.0 Urinary tract infection, site not specified (principal)
CPT/HCPCS: 81001; 87077; 87086; 87147; 99281; 99282

== ENCOUNTER → 2023-01-17 12:01 | Outpatient (CLI) | payer MEDICARE, OTHER, SELFPAY ==
--- NOTE | 2023-01-17 | DI.RAD.S_ITS ---
Bone Density Report Name: TRISHA ROBBINS Age: 82 Sex: Female Ethnicity: White Date of : 1940 Indication: postmenopausal osteoporosis; Referring Provider: HAVEN CAO Study: Bone densitometry was performed. Exam Date: January 17, 2023 Accession number: [id number] Bone Density: Region BMD T-score Z-score Classification AP Spine(L1-L4) 0.891 -1.4 1.4 Osteopenia Femoral Neck (Left) 0.557 -2.6 -0.2 Osteoporosis Total Hip (Left) 0.647 -2.4 -0.2 Osteopenia Femoral Neck (Right) 0.584 -2.4 0.0 Osteopenia Total Hip (Right) 0.660 -2.3 -0.1 Osteopenia Total Hip Mean 0.654 -2.4 -0.2 Osteopenia World Health Organization criteria for BMD impression classify patients as: Normal (T-score at or above -1.0), Osteopenia (T-score between -1.0 and -2.5), or Osteoporosis (T-score at or below -2.5). 10-year Fracture Risk: FRAX not reported because: Some T-score for Spine Total or Hip Total or Femoral Neck at or below -2.5 Previous Exams: -- Region Exam Age BMD T-score BMD Change BMD Change Date g/cm2 vs Baseline vs Previous -- AP Spine (L1-L4) 01/17/2023 82 0.891 -1.4 -0.048 (-5.2%)# -0.048 (-5.2%)# 06/03/2019 79 0.939 -1.0 Total Hip(Left) 01/17/2023 82 0.647 -2.4 0.004 (0.7%)# 0.004 (0.7%)# 06/03/2019 79 0.642 -2.5 Total Hip(Right) 01/17/2023 82 0.660 -2.3 0.029 (4.6%)# 0.029 (4.6%)# 06/03/2019 79 0.631 -2.5 -- *Denotes significance at 95% confidence level, LSC for AP Spine = 0.022 g/cm2, LSC for Total Hip = 0.027 g/cm2 # Denotes dissimilar scan types or analysis methods Impression: The patient has osteoporosis, based on the Left Femoral Neck T-score. No significant bone loss was observed. Discussion: INCREASED RISK OF FRACTURE. BONE DENSITY IS UNDESIRABLY LOW AT ONE OR MORE SKELETAL SITES, CONSISTENT WITH POSTMENOPAUSAL OSTEOPOROSIS. This patient's lowest T-score meets the World Health Organization's (WHO) criteria for osteoporosis at one or more sites (T-score -2.5 or below). In untreated patients, the risk of osteoporotic fracture increases approximately two-fold for each 1.0 SD decrease in T-score. Low bone density is not the only risk factor for fracture; also consider factors such as patient's age, frailty or poor health, risk of falling, risk of injury, previous osteoporotic fracture, family history of osteoporosis, cigarette smoking, low body weight, etc. Not everyone with low bone mineral density has osteoporosis; osteomalacia and other metabolic bone disorders should also be considered. Patients who have osteoporosis should be evaluated for specific diseases and conditions (secondary causes) that may cause or contribute to bone loss. The [place] [employer]ocrinologists (AACE) and National Osteoporosis Foundation (NOF) recommend pharmacologic intervention for all postmenopausal women whose T-score is in this range. The patient should follow a healthful lifestyle (good nutrition with adequate calcium and vitamin D, and appropriate weight-bearing exercise). Follow-Up: Consider a repeat BMD and Vertebral Fracture Assessment (VFA) exam in 2 years or sooner if medically necessary, to reassess this patient's status. Reported by: MABLE AYOUB M.D. on 01/15/2023 4:18:00 PM.
== END ==
PROVIDERS: PCP Student in an Organized Health Care Education/Training Program; Referring Provider Student in an Organized Health Care Education/Training Program; Visit Provider Student in an Organized Health Care Education/Training Program
DX: M81.0 Age-related osteoporosis without current pathological fracture (principal)
CPT/HCPCS: 77080

== ENCOUNTER 2023-05-16 08:38 | Emergency (ER) | payer MEDICARE, OTHER, SELFPAY ==
[2023-05-16] VITALS (16 sets, daily range): BP systolic 116–140; BP diastolic 62–75; PULSE 58–82; RESP 14–40; TEMP 36.4; O2SAT 92–99; BMI 19.8
--- NOTE | 2023-05-16 08:38 | ED.GENADULT ---
HPI - General Adult General Chief complaint: Dizziness Stated complaint: dizzy, no energy, cough Time Seen by Provider: 05/16/23 08:42 History of Present Illness HPI narrative: 83-year-old female smoker with history of AFib on Eliquis, COPD presents by EMS for evaluation of generalized fatigue for the past 2-3 weeks. She states that she is felt generally unwell over that time frame and occasionally feels dizzy upon standing but not at rest. She denies any blurred vision or trouble speech. She has no trouble with extremity numbness, tingling or weakness. No trauma or injury. No change in medications or diet. No recent travel. She is had some nasal congestion and cough which is occasionally productive of sputum but denies any significant shortness of breath. She denies exertional dyspnea, exercise intolerance or orthopnea. No weight gain or loss. No abdominal pain, nausea, vomiting or diarrhea. No dysuria, frequency or urgency. She states that she woke up this morning and was going to run some errands with her daughter but just felt worn out and fatigued and wanted to be checked out. Related Data Home Medications Medication Instructions Recorded Confirmed fluoxetine 40 mg capsule 20 mg PO QAM 09/16/19 02/14/21 alprazolam 0.25 mg tablet 25 mg PO BID PRN Anxiety 06/22/20 02/14/21 apixaban 5 mg tablet (Eliquis) 5 mg PO BID 06/22/20 02/14/21 diltiazem HCl 180 mg 180 mg PO QAM 06/22/20 02/14/21 capsule,extended release 24 hr (Cartia XT) omeprazole 20 mg tablet,delayed 20 mg PO BID 06/22/20 02/14/21 release rosuvastatin 40 mg tablet 40 mg PO BEDTIME 06/22/20 02/14/21 tiotropium bromide 18 mcg capsule 18 mcg inhalation QAM 06/22/20 02/14/21 with inhalation device (Spiriva with HandiHaler) trazodone 50 mg tablet 25 mg PO BEDTIME 06/22/20 02/14/21 fluticasone 250 mcg-salmeterol 50 1 inh inhalation BID 02/14/21 02/14/21 mcg/dose blistr powdr for inhalation (Wixela Inhub) metoclopramide HCl 10 mg tablet 5 mg PO TID 02/14/21 02/14/21 Previous Rx's Medication Instructions Recorded meclizine 25 mg tablet 25 mg PO BID PRN dizziness #14 tabs 11/20/22 cephalexin 500 mg capsule 500 mg PO Q6H 7 days #28 caps 05/16/23 Allergies Allergy/AdvReac Type Severity Reaction Status Date / Time No Known Drug Allergies Allergy Verified 11/23/22 08:34 Review of Systems Review of Systems Narrative: GENERAL: See HPI HEENT: Denies sinus pain, ear pain, sore throat, difficulty swallowing, dizziness. RESPIRATORY: See HPI CARDIOVASCULAR: Denies chest pain, palpitations, orthopnea, edema, GASTROINTESTINAL: Denies nausea, vomiting, abdominal pain, diarrhea, constipation, melena. : Denies dysuria, frequency, incontinence, hematuria, urinary retention. MUSCULOSKELETAL: denies weakness, joint pain, or bony pain SKIN: Denies rash, skin lesions, or other NEUROLOGIC: Denies weakness, headache, numbness, change in speech, confusion, seizures, incoordination. PSYCHIATRIC: No concerning psychosocial issues. 12 point review of systems is negative except for those stated above Patient History Medical History Atrial fibrillation COPD (chronic obstructive pulmonary disease) Surgical History History of History of repair of hiatal hernia Social History Smoking Status: Current every day smoker Exam Narrative Exam Narrative: GENERAL: [83] year old patient appears stated age. Thin, resting comfortably, no increased work of breathing HEAD: Atraumatic. Normocephalic. EYES: Pupils equal round and reactive. Extraocular motions intact. No scleral icterus. No injection or drainage. ENT: Dry mucous membrane Nose without bleeding, purulent drainage. Throat without erythema, tonsillar hypertrophy or exudate. Airway patent. NECK: Trachea midline. Non tender CARDIOVASCULAR: Regular rate and rhythm without murmurs, gallops, or rubs. RESPIRATORY: Decreased lung sounds throughout with prolonged expiratory phase, no wheezes, rales or rhonchi. No use of accessory muscles or measurable hypoxemia GASTROINTESTINAL: Abdomen soft, non-tender, nondistended. EXTREMITIES: No edema or joint tenderness. BACK: Nontender without deformity or crepitance. No flank tenderness. NEURO: AOx3. SKIN: Poor skin turgor No rash or erythema of visible areas Initial Vital Signs Initial Vital Signs: Vital Signs Temperature 97.6 F 05/16/23 08:35 Pulse Rate 63 05/16/23 08:35 Respiratory Rate 14 05/16/23 08:35 Blood Pressure 121/70 05/16/23 08:35 Pulse Oximetry 99 05/16/23 08:35 Oxygen Delivery Method Room Air 05/16/23 08:35 Course Orders Ordered: ED Orders 05/16/23 08:42 Chest [XR chest 1V] Stat EKG-12 Lead Stat 05/16/23 08:50 Complete Blood Count AUTO DIFF Stat Comprehensive Metabolic Panel Stat Lactate (Lactic Acid) Stat Magnesium Stat NT-proBNP (BNP-Adult 18+) Stat Procalcitonin Stat Respiratory Panel (Film Array) Stat Troponin & CK Cardiac Panel Stat 05/16/23 09:30 Urine Culture Stat Urine Microscopic Stat 05/16/23 10:52 Blood Culture Stat Discontinued Medications Sodium Chloride (Normal Saline 0.9%) 1,000 mls @ 1,000 mls/hr IV BOLUS ONE Stop: 05/16/23 09:41 Last Infusion: 05/16/23 10:13 Dose: 0 mls/hr Documented By: Admin: 05/16/23 09:00 Dose: 1,000 mls/hr Documented By: MPO Ceftriaxone Sodium 1,000 mg/ (Sodium Chloride) 100 mls @ 200 mls/hr IV NOW ONE Stop: 05/16/23 10:01 Last Infusion: 05/16/23 10:45 Dose: 0 mls/hr Documented By: Admin: 05/16/23 10:12 Dose: 200 mls/hr Documented By: MPO Sodium Chloride (Normal Saline 0.9%) 500 mls @ 1,000 mls/hr IV BOLUS ONE Stop: 05/16/23 11:40 Last Infusion: 05/16/23 12:15 Dose: 0 mls/hr Documented By: Admin: 05/16/23 11:31 Dose: 1,000 mls/hr Documented By: MPO Reevaluation(s) Reevaluation #1: patient reports that she is feeling significant improvement after IV fluids. Orthostatics were performed with no abnormal findings, she is able to ambulate Vital Signs Vital signs: Vital Signs - 8 hr 05/16/23 08:35 05/16/23 08:46 05/16/23 09:00 Temperature 97.6 F Pulse Rate 63 58 L Pulse Rate [Orthostatic Lying] Pulse Rate [Orthostatic Sitting] Pulse Rate [Orthostatic Standing] Respiratory Rate 14 20 Blood Pressure 121/70 126/72 Blood Pressure [Orthostatic Lying] Blood Pressure [Orthostatic Sitting] Blood Pressure [Orthostatic Standing] Pulse Oximetry 99 94 Oxygen Delivery Method Room Air 05/16/23 09:00 05/16/23 10:11 05/16/23 09:30 Temperature Pulse Rate 59 L Pulse Rate [Orthostatic Lying] 75 Pulse Rate [Orthostatic Sitting] 71 Pulse Rate [Orthostatic Standing] 70 Respiratory Rate 40 H Blood Pressure 140/75 Blood Pressure [Orthostatic Lying] 136/71 Blood Pressure [Orthostatic Sitting] 138/73 Blood Pressure [Orthostatic Standing] 123/71 Pulse Oximetry 95 Oxygen Delivery Method 05/16/23 09:30 05/16/23 10:00 05/16/23 10:00 Temperature Pulse Rate 82 70 Pulse Rate [Orthostatic Lying] Pulse Rate [Orthostatic Sitting] Pulse Rate [Orthostatic Standing] Respiratory Rate 24 Blood Pressure 123/70 Blood Pressure [Orthostatic Lying] Blood Pressure [Orthostatic Sitting] Blood Pressure [Orthostatic Standing] Pulse Oximetry 97 96 Oxygen Delivery Method Room Air 05/16/23 10:03 05/16/23 10:03 05/16/23 10:05 Temperature Pulse Rate 70 69 Pulse Rate [Orthostatic Lying] Pulse Rate [Orthostatic Sitting] Pulse Rate [Orthostatic Standing] Respiratory Rate 24 22 Blood Pressure 123/71 Blood Pressure [Orthostatic Lying] Blood Pressure [Orthostatic Sitting] Blood Pressure [Orthostatic Standing] Pulse Oximetry 96 96 Oxygen Delivery Method 05/16/23 10:05 05/16/23 10:06 05/16/23 10:06 Temperature Pulse Rate 72 Pulse Rate [Orthostatic Lying] Pulse Rate [Orthostatic Sitting] Pulse Rate [Orthostatic Standing] Respiratory Rate Blood Pressure 138/73 136/71 Blood Pressure [Orthostatic Lying] Blood Pressure [Orthostatic Sitting] Blood Pressure [Orthostatic Standing] Pulse Oximetry 93 Oxygen Delivery Method 05/16/23 10:09 05/16/23 10:09 05/16/23 10:30 Temperature Pulse Rate 78 Pulse Rate [Orthostatic Lying] Pulse Rate [Orthostatic Sitting] Pulse Rate [Orthostatic Standing] Respiratory Rate 24 Blood Pressure 133/65 126/67 Blood Pressure [Orthostatic Lying] Blood Pressure [Orthostatic Sitting] Blood Pressure [Orthostatic Standing] Pulse Oximetry 94 Oxygen Delivery Method 05/16/23 10:30 05/16/23 11:00 05/16/23 11:00 Temperature Pulse Rate 71 62 Pulse Rate [Orthostatic Lying] Pulse Rate [Orthostatic Sitting] Pulse Rate [Orthostatic Standing] Respiratory Rate 22 24 Blood Pressure 122/64 Blood Pressure [Orthostatic Lying] Blood Pressure [Orthostatic Sitting] Blood Pressure [Orthostatic Standing] Pulse Oximetry 92 94 Oxygen Delivery Method Room Air 05/16/23 11:15 05/16/23 11:30 05/16/23 11:30 Temperature Pulse Rate 75 75 Pulse Rate [Orthostatic Lying] Pulse Rate [Orthostatic Sitting] Pulse Rate [Orthostatic Standing] Respiratory Rate 40 H 35 H Blood Pressure 116/71 Blood Pressure [Orthostatic Lying] Blood Pressure [Orthostatic Sitting] Blood Pressure [Orthostatic Standing] Pulse Oximetry 95 95 Oxygen Delivery Method 05/16/23 11:45 05/16/23 12:00 05/16/23 12:00 Temperature Pulse Rate 69 69 Pulse Rate [Orthostatic Lying] Pulse Rate [Orthostatic Sitting] Pulse Rate [Orthostatic Standing] Respiratory Rate 24 28 H Blood Pressure 120/62 Blood Pressure [Orthostatic Lying] Blood Pressure [Orthostatic Sitting] Blood Pressure [Orthostatic Standing] Pulse Oximetry 95 95 Oxygen Delivery Method Medical Decision Making Lab Data 05/16/23 08:50 05/16/23 08:50 Labs: Lab Results 05/16/23 05/16/23 05/16/23 Range/Units 08:50 08:50 08:50 WBC 7.0 (4.5-11.0) X10^3/uL RBC 3.66 L (4.0-5.2) X10^6/uL Hgb 12.5 (12.0-16.0) g/dL Hct 36.4 (36-46) % MCV 99.6 (80-100) fL MCH 34.2 H (26-34) PG MCHC 34.3 (30-36) % RDW 13.4 (11.6-14.8) % Plt Count 266 (150-400) X10^3/uL Neut % (Auto) 65.7 (50-75) % Lymph % (Auto) 22.8 L (25-40) % [place] % (Auto) 7.7 (3-14) % Eos % (Auto) 2.8 (2-4) % Baso % (Auto) 1.0 (0-2) % Neut # (Auto) 4600 (4307-0528) /uL Lymph # (Auto) 1600 (1870-5925) /uL [place] # (Auto) 500 (0-900) /uL Eos # (Auto) 200 (0-450) /uL Baso # (Auto) 100 (0-100) /uL Sodium 135 L (137-145) mmol/L Potassium 4.0 (3.4-5.1) mmol/L Chloride 105 (98-107) mmol/L Carbon Dioxide 23 (22-32) mmol/L BUN 11 (7-17) mg/dL Creatinine 0.79 (0.52-1.04) mg/dL Estimated GFR > 60 (>60) mL/min BUN/Creatinine Ratio 13.9 (6-22) Glucose 107 (80-110) mg/dL Lactate 1.1 (0.7-2.1) mmol/L Calcium 9.2 (8.4-10.2) mg/dL Magnesium 2.2 (1.6-2.3) mg/dL Total Bilirubin 0.5 (0.2-1.3) mg/dL AST 26 (14-36) IU/L ALT 19 (<35) IU/L Alkaline Phosphatase 59 (38-126) U/L Total Creatine Kinase 92 (30-135) U/L Troponin I < 0.012 (0.01-0.034) ng/mL NT-Pro-B Natriuret Pep 389 (<450) pg/mL Total Protein 7.1 (6.3-8.2) g/dL Albumin 3.7 (3.5-5.0) g/dL Globulin 3.4 (1.7-4.1) g/dL Albumin/Globulin Ratio 1.1 (1.0-2.8) Procalcitonin 0.05 (<0.5) ng/mL Urine RBC (0-5/HPF) Urine WBC (0-5/HPF) Ur Squamous Epith Cells (0-5/HPF) Urine Bacteria (None) Ur Culture Indicated? Chlamy pneumoniae PCR (Not Detect) Adenovirus (PCR) (Not Detect) B. pertussis DNA (PCR) (Not Detecte) B.parapertussis DNA PCR (Not Detecte) Coronavirus OC43 (PCR) (Not Detect) Coronavirus HKU1 (PCR) (Not Detect) Coronavirus 229E (PCR) (Not Detect) SARS-CoV-2 (PCR) (Not Detecte) Coronavirus NL63 (PCR) (Not Detect) Human Metapneumovir PCR (Not Detect) Influenza Type A (PCR) (Not Detect) Influenza Type B (PCR) (Not Detect) M. pneumoniae (PCR) (Not Detect) Parainfluenza 1 (PCR) (Not Detect) Parainfluenza 2 (PCR) (Not Detect) Parainfluenza 3 (PCR) (Not Detect) Parainfluenza 4 (PCR) (Not Detect) RSV (PCR) (Not Detect) Entero/Rhino (PCR) (Not Detect) 05/16/23 05/16/23 Range/Units 08:50 09:30 WBC (4.5-11.0) X10^3/uL RBC (4.0-5.2) X10^6/uL Hgb (12.0-16.0) g/dL Hct (36-46) % MCV (80-100) fL MCH (26-34) PG MCHC (30-36) % RDW (11.6-14.8) % Plt Count (150-400) X10^3/uL Neut % (Auto) (50-75) % Lymph % (Auto) (25-40) % [place] % (Auto) (3-14) % Eos % (Auto) (2-4) % Baso % (Auto) (0-2) % Neut # (Auto) (8284-8104) /uL Lymph # (Auto) (3667-9167) /uL [place] # (Auto) (0-900) /uL Eos # (Auto) (0-450) /uL Baso # (Auto) (0-100) /uL Sodium (137-145) mmol/L Potassium (3.4-5.1) mmol/L Chloride (98-107) mmol/L Carbon Dioxide (22-32) mmol/L BUN (7-17) mg/dL Creatinine (0.52-1.04) mg/dL Estimated GFR (>60) mL/min BUN/Creatinine Ratio (6-22) Glucose (80-110) mg/dL Lactate (0.7-2.1) mmol/L Calcium (8.4-10.2) mg/dL Magnesium (1.6-2.3) mg/dL Total Bilirubin (0.2-1.3) mg/dL AST (14-36) IU/L ALT (<35) IU/L Alkaline Phosphatase (38-126) U/L Total Creatine Kinase (30-135) U/L Troponin I (0.01-0.034) ng/mL NT-Pro-B Natriuret Pep (<450) pg/mL Total Protein (6.3-8.2) g/dL Albumin (3.5-5.0) g/dL Globulin (1.7-4.1) g/dL Albumin/Globulin Ratio (1.0-2.8) Procalcitonin (<0.5) ng/mL Urine RBC 1-5/hpf (0-5/HPF) Urine WBC 5-10/hpf H (0-5/HPF) Ur Squamous Epith Cells 10-30 /hpf H (0-5/HPF) Urine Bacteria Few (2-10) H (None) Ur Culture Indicated? Specimen cultured Chlamy pneumoniae PCR Not detected (Not Detect) Adenovirus (PCR) Not detected (Not Detect) B. pertussis DNA (PCR) Not detected (Not Detecte) B.parapertussis DNA PCR Not detected (Not Detecte) Coronavirus OC43 (PCR) Not detected (Not Detect) Coronavirus HKU1 (PCR) Not detected (Not Detect) Coronavirus 229E (PCR) Not detected (Not Detect) SARS-CoV-2 (PCR) Not detected (Not Detecte) Coronavirus NL63 (PCR) Not detected (Not Detect) Human Metapneumovir PCR Not detected (Not Detect) Influenza Type A (PCR) Not detected (Not Detect) Influenza Type B (PCR) Not detected (Not Detect) M. pneumoniae (PCR) Not detected (Not Detect) Parainfluenza 1 (PCR) Not detected (Not Detect) Parainfluenza 2 (PCR) Not detected (Not Detect) Parainfluenza 3 (PCR) Not detected (Not Detect) Parainfluenza 4 (PCR) Not detected (Not Detect) RSV (PCR) Not detected (Not Detect) Entero/Rhino (PCR) Not detected (Not Detect) Urine Dip Bedside Urine Glucose Negative Bedside Urine Ketone +/- 5 Urine Specific Wendel 1.020 Bedside Urine Occult Blood +/- Bedside Urine pH 6.0 Bedside Urine Protein +/- 15 Bedside Urine Urobilinogen - Negative Bedside Urine Nitrite - Negative Bedside Urine Leukocytes +++ 500 Esterase Point of care testing: Urine Dip Bedside Urine Glucose Negative Bedside Urine Ketone +/- 5 Urine Specific Wendel 1.020 Bedside Urine Occult Blood +/- Bedside Urine pH 6.0 Bedside Urine Protein +/- 15 Bedside Urine Urobilinogen - Negative Bedside Urine Nitrite - Negative Bedside Urine Leukocytes +++ 500 Esterase MDM Narrative Medical decision making narrative: CC: 83-year-old female with fatigue Complicating co-morbidities: Age, AFib, COPD Data collected from: Patient Medical records reviewed: Prior notes reviewed in our EMR Differential considered, but not limited to: Cardiac ischemia versus pneumonia versus dehydration versus electrolyte abnormality versus other infectious etiology versus other Exam documented above, pertinent findings include: Dry mucous membranes and poor skin turgor. Heart rate regular, lungs clear and no work of breathing that is significant, abdomen soft Lab Test results independently reviewed as above. Pertinent findings: Independently reviewed EKG as above Imaging studies independently reviewed: chest x-ray without acute findings Treatments: saline, rocephin Re-evaluations: patient feels significant improvement Discussion: 83-year-old female with a few weeks of feeling weak and generally unwell. Multiple diagnoses considered as noted above. Her history and physical exam are very reassuring, EKGs nonischemic, no evidence of exertional symptoms, exercise intolerance, cardiac equivalent and troponin is negative. Patient reports some cough but demonstrates no signs of shortness of breath, no increased work of breathing, no use of accessory muscles, no hypoxemia. Chest x-ray shows no obvious infiltrate, respiratory panel negative. Urine is rather convincing for an infectious process which likely contributed to dehydration as evidenced by dry mucous membranes and poor skin turgor as well as improved symptoms after receiving fluids. Patient shows no signs of sepsis, appropriate for discharge. First round of antibiotics here and remainder prescription sent to her pharmacy Disposition: see below, along with detailed discharge instructions that have been reviewed with patient as well as indications for ED re-evaluation and additional outpatient follow up Discharge Plan Departure Patient Disposition: Home Clinical Impression: Acute dehydration, Acute UTI Instructions: Urinary Tract Infection, DI for Dehydration -- Adult, DI for Urinary Tract Infection (UTI) Activity Restrictions/Additional Instructions: *You have been diagnosed with [ fatigue and generalized weakness due to UTI and dehydration. Otherwise your story, exam and labs are reassuring] *What to do: *Please continue to take your regular medications as directed. [x ] New medication prescriptions sent to your pharmacy: [[facility] ] [ ] New medication written as a paper prescription [ ] No new medications given *Please follow up with your primary care provider in 2-3 days, call for an appointment. Let them know you were seen in the Emergency Department and that we ask that you be seen in follow up. We will electronically transmit a record of today's note if your PCP is in our system *If you do not have a primary care provider please contact the [facility] Resource line at [phone]. They will ask some questions about your medical history and help get you set up with a doctor in the community. *Return to Emergency Department if you should have any new, worsening or concerning symptoms, such as [fever greater than 101 F, shaking chills, worsening pain, persistent vomiting or other bothersome symptoms] Prescriptions: New cephalexin 500 mg capsule 500 mg PO Q6H 7 Days Qty: 28 0RF No Action fluoxetine 40 mg capsule 20 mg PO QAM Patient Comments: TAKE 1 CAPSULE BY MOUTH ONCE DAILY IN THE MORNING trazodone 50 mg Tablet 25 mg PO BEDTIME diltiazem HCl [Cartia XT] 180 mg capsule,extended release 24hr 180 mg PO QAM alprazolam 0.25 mg tablet 25 mg PO BID PRN (Reason: Anxiety) Patient Comments: TAKE 1 TABLET BY MOUTH TWICE DAILY FOR 30 DAYS rosuvastatin 40 mg tablet 40 mg PO BEDTIME Patient Comments: TAKE 1 TABLET BY MOUTH NIGHTLY Spiriva with HandiHaler 18 mcg capsule, w/inhalation device 18 mcg INHALATION QAM omeprazole 20 mg Tablet,Delayed Release (Dr/Ec) 20 mg PO BID Eliquis 5 mg Tablet 5 mg PO BID meclizine 25 mg tablet 25 mg PO BID PRN (Reason: dizziness) Qty: 14 0RF fluticasone propion-salmeterol [Wixela Inhub] 250-50 mcg/dose Blister With Device 1 inh INHALATION BID metoclopramide HCl 10 mg tablet 5 mg PO TID Patient Comments: TAKE 1 2 (ONE HALF) TABLET BY MOUTH THREE TIMES DAILY. TAKE 30 MINUTESBEFORE MEALS. Referrals: Shannan Robles PA-C [Primary Care Provider] - Stand Alone Forms: Patient Portal/API
--- NOTE | 2023-05-16 08:42 | DI.RAD.S_ITS ---
PROCEDURE: XR CHEST 1V INDICATIONS: weakness, cough, sputum, fatigue TECHNIQUE: One view of the chest was acquired. COMPARISON: [facility], CR, XR CHEST 1V, 11/20/2022, 19:10. [facility], CR, XR CHEST 1V, 02/14/2021, 12:52. FINDINGS: Surgical changes and devices: None. Lungs and pleura: Lungs are clear. No pleural effusions or pneumothorax. Mediastinum: Mediastinal contours appear normal. Heart size is normal. Bones and chest wall: No suspicious bony lesions. Overlying soft tissues appear unremarkable. IMPRESSION: No acute cardiopulmonary abnormality. Dictated by: Alvaro Guerra M.D. on 05/16/2023 at 10:45 Approved by: Alvaro Guerra M.D. on 05/16/2023 at 10:47
[2023-05-16 08:56] LABS: Add Manual Diff / Slide Review NO; Basophils Absolute Auto 100 /uL (0-100); Eosinophils Absolute Auto 200 /uL (0-450); Eosinophils Percent Auto 2.8 % (2-4); Hematocrit 36.4 % (36-46); Hemoglobin 12.5 g/dL (12.0-16.0); Lymphocytes Absolute Auto 1600 /uL (1100-4500); Lymphocytes Percent Auto 22.8 % (25-40); Mean Corpuscular HGB Conc 34.3 % (30-36); Mean Corpuscular Hemoglobin 34.2 PG (26-34); Mean Corpuscular Volume 99.6 fL (80-100); Monocytes Absolute Auto 500 /uL (0-900); Monocytes Percent Auto 7.7 % (3-14); Neutrophils Absolute Auto 4600 /uL (1500-7000); Neutrophils Percent Auto 65.7 % (50-75); Platelet Count 266 X10^3/uL (150-400); Red Blood Cell Count 3.66 X10^6/uL (4.0-5.2); Red Cell Distribution Width 13.4 % (11.6-14.8)
[2023-05-16] MEDS: SODIUM CHLORIDE 0.9% 1,000 ML 1000 ML IV (09:00)
[2023-05-16 09:18] LABS: Lactate (Lactic Acid) 1.1 mmol/L (0.7-2.1)
[2023-05-16 09:20] LABS: Alanine Aminotransferase 19 IU/L (<35); Albumin 3.7 g/dL (3.5-5.0); Albumin Globulin Ratio 1.1 (1.0-2.8); Alkaline Phosphatase 59 U/L (38-126); Aspartate Aminotransferase 26 IU/L (14-36); BUN Creatinine Ratio 13.9 (6-22); Bilirubin Total 0.5 mg/dL (0.2-1.3); Blood Urea Nitrogen 11 mg/dL (7-17); Calcium 9.2 mg/dL (8.4-10.2); Carbon Dioxide 23 mmol/L (22-32); Chloride 105 mmol/L (98-107); Creatine Kinase 92 U/L (30-135); Estimated Glomerular Filt Rate > 60 mL/min (>60); Globulin 3.4 g/dL (1.7-4.1); Glucose 107 mg/dL (80-110); HEMOLYSIS < 15 (0-50); Magnesium 2.2 mg/dL (1.6-2.3); Sodium 135 mmol/L (137-145); Total Protein 7.1 g/dL (6.3-8.2)
[2023-05-16 09:30] LABS: NT-proBNP (BNP-Adult 18+) 389 pg/mL (<450); Troponin I < 0.012 ng/mL (0.01-0.034)
[2023-05-16 09:35] LABS: Procalcitonin 0.05 ng/mL (<0.5)
[2023-05-16 09:45] LABS: Adenovirus Not Detected (Not Detect); B. parapertussis Not Detected (Not Detecte); Bordetella pertussis Not Detected (Not Detecte); Chlamydophila pneumoniae Not Detected (Not Detect); Coronavirus 229E Not Detected (Not Detect); Coronavirus HKU1 Not Detected (Not Detect); Coronavirus NL 63 Not Detected (Not Detect); Coronavirus OC43 Not Detected (Not Detect); Human Metapneumovirus Not Detected (Not Detect); Human Rhinovirus/Enterovirus Not Detected (Not Detect); Influenza A Not Detected (Not Detect); Influenza B Not Detected (Not Detect); Mycoplasma pneumoniae Not Detected (Not Detect); Parainfluenza Virus 1 Not Detected (Not Detect); Parainfluenza Virus 2 Not Detected (Not Detect); Parainfluenza Virus 3 Not Detected (Not Detect); Parainfluenza Virus 4 Not Detected (Not Detect); Respiratory Syncytial Virus Not Detected (Not Detect); SARS- CoV-2 Not Detected (Not Detecte)
[2023-05-16 10:10] LABS: Bacteria Urine Few (2-10); RBC Urine 1-5/HPF (0-5/HPF); WBC Urine 5-10/HPF (0-5/HPF)
[2023-05-16 10:11] LABS: Culture Indicated Urine Specimen Cultured; Squamous Epithelial Cell Urine 10-30 /HPF (0-5/HPF)
[2023-05-16] MEDS: cefTRIAXone 1,000 MG in SODIUM CHLORIDE 0.9% 100 ML 200 MG IV (10:12)
--- NOTE | 2023-05-16 10:12 | PC.NURSE ---
SCREEN PRINTING INSPECTOR Note - Patient walked to the doorway of her room, and turned back because the patient felt too weak to walk farther
[2023-05-16] MEDS: SODIUM CHLORIDE 0.9% 500 ML 1000 ML IV (11:31)
== END 2023-05-16 11:59 | disposition home or self-care (01) ==
PROVIDERS: Emergency Provider Emergency Medicine; PCP Student in an Organized Health Care Education/Training Program
DX: E86.0 Dehydration (principal); N39.0 Urinary tract infection, site not specified
CPT/HCPCS: 36415; 71045; 80053; 81003; 81015; 82550; 83605; 83735; 83880; 84145; 84484; 85025; 87040; 87077; 87086; 87185; 87186; 87633; 93005; 96361; 96365; 99284; J0696

== ENCOUNTER 2023-07-04 07:23 | Emergency (ER) | payer MEDICARE, OTHER, SELFPAY ==
[2023-07-04 07:27] VITALS: O2SAT 91
[2023-07-04 07:28] VITALS: BP 139/73; PULSE 79; O2SAT 94
--- NOTE | 2023-07-04 07:28 | ED.LOWEXIN ---
HPI - Extremity Injury (Lower) General Chief Complaint: Fall Stated Complaint: sent by [facility] fall Friday Time Seen by Provider: 07/04/23 07:27 History of Present Illness HPI Narrative: A 3-year-old female with history of AFib on Eliquis presents from the walk-in clinic for evaluation of left leg swelling as well as head injury. Six days ago the patient had a ground level trip and fall (tripped over heater on the ground) and struck her face on the ground. Denies loss of consciousness, did not seek medical care at that time. She has bruising over her L eye as well as pain and swelling of her anterior L anne. Has been applying ice but is concerned that it is still swollen, and now there is [id number] bruising over her ankle. Ambulatory. Reports last tetanus shot is within the last 5 years. Related Data Home Medications Medication Instructions Recorded Confirmed fluoxetine 40 mg capsule 20 mg PO QAM 09/16/19 02/14/21 alprazolam 0.25 mg tablet 25 mg PO BID PRN Anxiety 06/22/20 02/14/21 apixaban 5 mg tablet (Eliquis) 5 mg PO BID 06/22/20 02/14/21 diltiazem HCl 180 mg 180 mg PO QAM 06/22/20 02/14/21 capsule,extended release 24 hr (Cartia XT) omeprazole 20 mg tablet,delayed 20 mg PO BID 06/22/20 02/14/21 release rosuvastatin 40 mg tablet 40 mg PO BEDTIME 06/22/20 02/14/21 tiotropium bromide 18 mcg capsule 18 mcg inhalation QAM 06/22/20 02/14/21 with inhalation device (Spiriva with HandiHaler) trazodone 50 mg tablet 25 mg PO BEDTIME 06/22/20 02/14/21 fluticasone 250 mcg-salmeterol 50 1 inh inhalation BID 02/14/21 02/14/21 mcg/dose blistr powdr for inhalation (Wixela Inhub) metoclopramide HCl 10 mg tablet 5 mg PO TID 02/14/21 02/14/21 Previous Rx's Medication Instructions Recorded meclizine 25 mg tablet 25 mg PO BID PRN dizziness #14 tabs 11/20/22 Allergies Allergy/AdvReac Type Severity Reaction Status Date / Time No Known Drug Allergies Allergy Verified 07/04/23 07:41 Review of Systems Review of Systems Narrative: Negative except as noted above Patient History Medical History Atrial fibrillation COPD (chronic obstructive pulmonary disease) Surgical History History of History of repair of hiatal hernia Social History Smoking Status: Current every day smoker Smoking Status: Current every day smoker alcohol intake frequency: 3 or more drinks per day Substance Use Type: does not use Exam Initial Vital Signs Initial Vital Signs: Vital Signs Pulse Oximetry 91 07/04/23 07:27 Const: Awake, alert, no acute distress, nontoxic appearing Eyes: PERRL, EOMI, conjunctiva normal ENT: Atraumatic, mucous membranes moist Cardiac: regular rate, regular rhythm RESP: unlabored, clear bilaterally, no wheezing GI: Atraumatic, soft, nontender, nondistended, no rebound, no guarding MSK: Atraumatic, full range of motion, pulses equal Skin: Warm, Dry, intact, healing periorbital bruise L eye. Swelling L anterior tibia, dependent bruising to ankle Neuro: AO x3, CN II-XII grossly intact, moves all extremities Psych: affect normal, mood normal, not suicidal, not homicidal Course Course Course Narrative: Bruising and swelling of the left anne after ground level fall several days ago. Since patient is 83 years old, has daily alcohol use, and is on blood thinners we will scan head to ensure there is no occult bleed. Orders Ordered: ED Orders 07/04/23 07:40 CT head/brain wo con Stat XR tibia fibula LT 2V Stat Reevaluation(s) Reevaluation #1: X-ray and CT imaging negative for acute findings. Anthony wrap placed on hematoma. RICE instructions cousneled at bedside. Ambulatory at time of discharge. ED return precautions discussed at bedside. Patient expressed understanding of the plan and is in agreement at this time. All questions answered at the time of discharge. Vital Signs Vital signs: Vital Signs - 8 hr 07/04/23 07:27 07/04/23 07:28 07/04/23 07:28 Temperature Pulse Rate 79 Respiratory Rate Blood Pressure 139/73 Pulse Oximetry 91 94 Oxygen Delivery Method 07/04/23 07:30 07/04/23 07:30 07/04/23 07:33 Temperature 98.3 F Pulse Rate 76 74 Respiratory Rate 18 Blood Pressure 136/76 136/76 Pulse Oximetry 95 95 Oxygen Delivery Method Room Air 07/04/23 07:54 07/04/23 07:54 07/04/23 08:00 Temperature Pulse Rate 71 Respiratory Rate 18 Blood Pressure 133/76 120/65 Pulse Oximetry 93 Oxygen Delivery Method 07/04/23 08:00 Temperature Pulse Rate 67 Respiratory Rate 20 Blood Pressure Pulse Oximetry 93 Oxygen Delivery Method Discharge Plan Departure Patient Disposition: Home Clinical Impression: Hematoma Instructions: DI for Hematoma (Bruise), How to Apply an Anthony Wrap Prescriptions: No Action fluoxetine 40 mg capsule 20 mg PO QAM Patient Comments: TAKE 1 CAPSULE BY MOUTH ONCE DAILY IN THE MORNING trazodone 50 mg Tablet 25 mg PO BEDTIME diltiazem HCl [Cartia XT] 180 mg capsule,extended release 24hr 180 mg PO QAM alprazolam 0.25 mg tablet 25 mg PO BID PRN (Reason: Anxiety) Patient Comments: TAKE 1 TABLET BY MOUTH TWICE DAILY FOR 30 DAYS rosuvastatin 40 mg tablet 40 mg PO BEDTIME Patient Comments: TAKE 1 TABLET BY MOUTH NIGHTLY Spiriva with HandiHaler 18 mcg capsule, w/inhalation device 18 mcg INHALATION QAM omeprazole 20 mg Tablet,Delayed Release (Dr/Ec) 20 mg PO BID Eliquis 5 mg Tablet 5 mg PO BID meclizine 25 mg tablet 25 mg PO BID PRN (Reason: dizziness) Qty: 14 0RF fluticasone propion-salmeterol [Wixela Inhub] 250-50 mcg/dose Blister With Device 1 inh INHALATION BID metoclopramide HCl 10 mg tablet 5 mg PO TID Patient Comments: TAKE 1 2 (ONE HALF) TABLET BY MOUTH THREE TIMES DAILY. TAKE 30 MINUTESBEFORE MEALS. Referrals: Shannan Robles PA-C [Primary Care Provider] - Stand Alone Forms: Patient Portal/API
[2023-07-04 07:30] VITALS: BP 136/76; PULSE 76; O2SAT 95
[2023-07-04 07:33] VITALS: BP 136/76; PULSE 74; RESP 18; TEMP 36.8; O2SAT 95; BMI 18.5
--- NOTE | 2023-07-04 07:40 | DI.RAD.S_ITS ---
PROCEDURE: XR TIBIA FIBULA LT 2V INDICATIONS: GLF, SWELLING TECHNIQUE: 2 views of the tibia and fibula were acquired. COMPARISON: None. FINDINGS: Bones: No fractures or dislocations. No suspicious bony lesions. Soft tissues: No suspicious soft tissue calcifications or masses. IMPRESSION: No evidence acute bony abnormality. Dictated by: Jeronimo Moralez M.D. on 07/04/2023 at 8:01 Approved by: Jeronimo Moralez M.D. on 07/04/2023 at 8:01
--- NOTE | 2023-07-04 07:40 | DI.CT.S_ITS ---
PROCEDURE: CT HEAD/BRAIN WO CON INDICATIONS: GLF, HIT HEAD ON XARELTO TECHNIQUE: Noncontrast 4.5 mm thick angled axial sections acquired from the foramen magnum to the vertex, with coronal and sagittal reformats. For radiation dose reduction, the following was used: automated exposure control, adjustment of mA and/or kV according to patient size. COMPARISON: [facility], CT, CT HEAD/BRAIN WO CON, 11/20/2022, 21:08. FINDINGS: Image quality: Excellent. CSF spaces: Basal cisterns are patent. No extra-axial fluid collections. The ventricles are symmetric in size and shape. Brain: No acute intracranial hemorrhage or mass effect. There is cerebral volume loss for age, with resultant ventricular and sulcal prominence. There are periventricular and deep white matter chronic small vessel ischemic changes. There is intracranial internal carotid artery atherosclerosis. Skull and face: Calvarium and visualized facial bones appear intact. Mildly heterogeneous appearance of the visualized osseous structures again noted. Sinuses: Mucous retention cyst versus polyp in the left maxillary sinus. Mild mucosal thickening in the anterior ethmoid air cells on the right. The paranasal sinuses and mastoid air cells are otherwise clear. IMPRESSION: No acute intracranial abnormality. Stable chronic findings. Approved by: Alvaro Vaca M.D. on 07/04/2023 at 8:13
[2023-07-04 07:54] VITALS: BP 133/76; PULSE 71; RESP 18; O2SAT 93
[2023-07-04 08:00] VITALS: BP 120/65; PULSE 67; RESP 20; O2SAT 93
== END 2023-07-04 08:30 | disposition home or self-care (01) ==
PROVIDERS: Emergency Provider Emergency Medicine; PCP Student in an Organized Health Care Education/Training Program
DX: S00.12XA Contusion of left eyelid and periocular area, initial encounter (principal); R60.9 Edema, unspecified; W18.30XA Fall on same level, unspecified, initial encounter; Z79.01 Long term (current) use of anticoagulants; Z79.899 Other long term (current) drug therapy
CPT/HCPCS: 70450; 73590; 99282; 99284

== ENCOUNTER → 2024-02-12 07:40 | Outpatient (CLI) | payer MEDICARE, OTHER, SELFPAY ==
[2024-02-12 09:22] LABS: Vitamin D 25 Hydroxy (D3) 78.3 ng/mL (30.0-100.0)
== END ==
PROVIDERS: PCP Student in an Organized Health Care Education/Training Program; Referring Provider Student in an Organized Health Care Education/Training Program; Visit Provider Student in an Organized Health Care Education/Training Program
DX: M81.0 Age-related osteoporosis without current pathological fracture (principal)
CPT/HCPCS: 36415; 82306

== ENCOUNTER → 2024-03-19 09:12 | Outpatient (CLI) | payer MEDICARE, OTHER, SELFPAY | PROVIDERS: PCP Family Medicine; Referring Provider Family Medicine; Visit Provider Family Medicine | DX: N30.00 Acute cystitis without hematuria (principal) | CPT/HCPCS: 87077; 87086; 87186 ==

== ENCOUNTER → 2024-06-16 08:53 | Outpatient (CLI) | payer MEDICARE, OTHER, SELFPAY ==
[2024-06-16 10:13] LABS: BUN Creatinine Ratio 11.5 (6-22); Blood Urea Nitrogen 10 mg/dL (7-17); Calcium 9.1 mg/dL (8.4-10.2); Carbon Dioxide 23 mmol/L (22-32); Chloride 105 mmol/L (98-107); Estimated Glomerular Filt Rate > 60 mL/min (>60); Glucose 86 mg/dL (80-110); HEMOLYSIS < 15 (0-50); Potassium 4.7 mmol/L (3.4-5.1); Sodium 136 mmol/L (137-145)
== END ==
PROVIDERS: PCP Family Medicine; Referring Provider Internal Medicine Cardiovascular Disease; Visit Provider Internal Medicine Cardiovascular Disease
DX: I25.10 Atherosclerotic heart disease of native coronary artery without angina pectoris (principal)
CPT/HCPCS: 36415; 80048

== ENCOUNTER → 2025-05-20 08:40 | Outpatient (CLI) | payer MEDICARE, OTHER, SELFPAY ==
[2025-05-20 10:07] LABS: Hemoglobin A1C% w Est Avg Glu 5.2 % (4.0-6.0)
[2025-05-20 10:25] LABS: Alanine Aminotransferase 13 IU/L (<35); Albumin 4.0 g/dL (3.5-5.0); Albumin Globulin Ratio 1.3 (1.0-2.8); Alkaline Phosphatase 59 U/L (38-126); Blood Urea Nitrogen 13 mg/dL (7-17); Calcium 9.2 mg/dL (8.4-10.2); Carbon Dioxide 27 mmol/L (22-32); Chloride 106 mmol/L (98-107); Estimated Glomerular Filt Rate > 60 mL/min (>60); Globulin 3.2 g/dL (1.7-4.1); Glucose 121 mg/dL (70-99); HEMOLYSIS < 15 (0-50); Potassium 4.8 mmol/L (3.4-5.1); Sodium 139 mmol/L (137-145); Total Protein 7.2 g/dL (6.3-8.2)
[2025-05-20 10:55] LABS: Cortisol AM (Before 10AM) 9.78 ug/dL (4.46-22.7)
[2025-05-20 10:57] LABS: TSH w/ Reflex to FT4 4.13 uIU/mL (0.47-4.68)
== END ==
PROVIDERS: PCP Family Medicine; Referring Provider Family Medicine; Visit Provider Family Medicine
DX: E16.2 Hypoglycemia, unspecified (principal)
CPT/HCPCS: 36415; 80053; 82533; 83036; 84443